=== PATIENT | female | born 1950 | race Caucasian/White ===

== ENCOUNTER → 2018-06-11 | Day surgery (SDC) | payer MEDICAID ==
[2018-06-11 12:28] VITALS: RESP 16; TEMP 97.7; BMI 33.4
--- NOTE | 2018-06-11 14:16 | USB ---
EXAMINATION TYPE: US biopsy breast VAD LT, MG diagnostic mammo LT wo CAD DATE OF EXAM: 06/11/2018 CLINICAL HISTORY: R92.8 Abn mammo and US. TECHNIQUE: Ultrasound guided core biopsy of left breast with clip placement and follow-up diagnostic two-view left breast mammogram. COMPARISON: Outside mammogram and ultrasound May 28, 2018 in original screening study March 16, 2018 FINDINGS: The procedure of ultrasound guided core biopsy was explained to the patient. Benefits, alternatives, and risks were discussed. An informed consent was then obtained. The patient was placed in supine positioning for imaging and for the procedure. Preprocedure ultrasound redemonstrates a vague 6 mm hypoechoic lesion deep in the left breast at 4:00 level don't see. The overlying skin was prepped and draped in usual sterile fashion. Lidocaine buffered with bicarbonate was used as anesthetic into the skin. Lidocaine with epinephrine is used as anesthetic into the deeper tissue up to area of concern in the left breast. Under ultrasound guidance, a 12-gauge vacuum assisted biopsy gun device was used to obtain 3 core samples. Following this, a biopsy clip was left in lesion. Lesion was less well visualized and/or defined after sampling. The patient tolerated the procedure well without any immediate complication. The patient was kept in the radiology department for short stay after the procedure and then discharged home in stable condition. Postprocedure mammogram shows clip satisfactory position relative to previous procedure imaging. Lesion is less well visualized after biopsy. IMPRESSION: Successful, uncomplicated ultrasound guided core biopsy of area of concern in the left breast, full pathology results to follow. Intermediate to high index of suspicion noted at time of procedure. Pathology Results: Malignant BREAST, LEFT, ULTRASOUND GUIDED CORE BIOPSY: Invasive well differentiated ductal carcinoma (Grade 1). See Surgical Pathology Cancer Case Summary. Recommendation Surgical consult of the left breast. SEMAJ
[2018-06-11 14:33] VITALS: BP 137/74; PULSE 75
== END ==
LOC: RADUSWWP 12:01
PROVIDERS: ATTEND Family Medicine
DX: C50.912 Malignant neoplasm of unspecified site of left female breast (principal); Z91.041 Radiographic dye allergy status
CPT/HCPCS: 88305; 77065; 19083; A4648; J2001

== ENCOUNTER → 2018-06-19 | Outpatient (CLI) | payer MEDICAID ==
[2018-06-19 14:10] VITALS: BP 148/92; PULSE 86; BMI 34.0
--- NOTE | 2018-06-19 15:25 | P.GSHP ---
History of Present Illness H&P Date: 06/19/18 The patient is a 67-year-old white female who on a routine screening mammogram was noted to have an area of concern in the left breast. This was done in February at [place]. The patient subsequently had additional views of the left breast performed in April and finally an ultrasound performed [place] [address] an ultrasound-guided core biopsy of the lesion of concern in the left breast. This was a invasive well-differentiated ductal carcinoma grade 1. The patient states that she did not feel any masses or lumps in her breasts. She has no nipple discharge or skin changes. She has no history of trauma or infection in the breast. Family history: 1. father: esophagus 2. sister: rib cancer 3. great grandmother: uterine cancer Hormonal History: menarche: 11 pregnancies: 4, 4 children, first at 16, breast fed: no menopause: 34-total hysterectomy took one ovary, later went back and removed the second ovary BCP: 6 years hormones: 8 years Past Surgical History: 1. back surgery 2. total hysterectomy for fibroids 3. nose 4. gallbaldder Past Medical History: 1. HTN 2.hiatal hernia 3. arthritis 4. fibromyalgia Social History: smoke: stopped 10 years ago, smoked 1PPD for 20 years alcohol: occasional wine drugs: none - Constitutional Constitutional: Denies chills, Denies fever - EENT Comment: vertigo at times Eyes: denies blurred vision, denies pain Ears: deny: decreased hearing, ear discharge, earache, tinnitus Ears, nose, mouth and throat: Denies headache, Denies sore throat - Breasts Breasts: bilateral: as per HPI - Cardiovascular Cardiovascular: Reports high blood pressure - Respiratory Comment: former smoker Respiratory: Denies cough, Denies 7 - Gastrointestinal Comment: spastic colon Gastrointestinal: Reports diarrhea - Genitourinary (Female) Genitourinary: Denies dysuria, Denies hematuria - Menstruation Menstruation: Reports post hysterectomy - Musculoskeletal Comment: arthritis - Integumentary Integumentary: Denies pruritus, Denies rash - Neurological Neurological: Denies numbness, Denies weakness - Psychiatric Psychiatric: Denies anxiety, Denies depression - Endocrine Endocrine: Denies fatigue, Denies weight change - Hematologic/Lymphatic Comment: baby aspirin - Allergic/Immunologic Allergic/Immunologic: Reports seasonal allergies Past Medical History Past Medical History: Hyperlipidemia, Hypertension, Osteoarthritis (OA) Additional Past Medical History / Comment(s): Sinus problems/seasonal allergies History of Any Multi-Drug Resistant Organisms: None Reported Past Surgical History: Back Surgery, Cholecystectomy, Hysterectomy Past Anesthesia/Blood Transfusion Reactions: No Reported Reaction Past Psychological History: Anxiety Smoking Status: Former smoker Past Alcohol Use History: None Reported Past Drug Use History: None Reported Medications and Allergies Home Medications Medication Instructions Recorded Confirmed Type Acetaminophen [Tylenol] 500 mg PO HS PRN 06/08/18 06/19/18 History Aspirin EC [Ecotrin Low Dose] 81 mg PO DAILY 06/08/18 06/19/18 History Atorvastatin [Lipitor] 10 mg PO DAILY 06/08/18 06/19/18 History Cholecalciferol [Vitamin D3] 1,000 unit PO DAILY 06/08/18 06/19/18 History Cyclobenzaprine [Flexeril] 10 mg PO BID PRN 06/08/18 06/19/18 History DULoxetine HCL [Cymbalta] 60 mg PO DAILY 06/08/18 06/19/18 History Loratadine [Claritin] 10 mg PO DAILY 06/08/18 06/19/18 History Omeprazole [PriLOSEC] 20 mg PO AC-BRKFST 06/08/18 06/19/18 History Quinapril HCl [Accupril] 10 mg PO DAILY 06/08/18 06/19/18 History Allergies Allergy/AdvReac Type Severity Reaction Status Date / Time Iodinated Contrast- Oral and Allergy Rash/Hives Verified 06/11/18 12:14 IV Dye Surgical - Exam Vital Signs Pulse BP 86 148/92 06/19/18 14:04 06/19/18 14:04 BMI 34 - General obese - Eyes normal ocular movement - ENT no hearing loss, no congestion - Neck no masses, trachea midline - Respiratory normal respiratory effort, clear to auscultation - Cardiovascular Rhythm: regular Heart Sounds: normal: S1, S2 - Abdomen Abdomen: soft, non tender, no guarding, no rigid, no rebound - Neurologic no disoriented, no combative - Musculoskeletal normal gait, normal posture - Psychiatric oriented to time, oriented to person, oriented to place, speech is normal, memory intact Breast examination: Right breast: Multi-positional exam no dominant masses or nodules of concern, fibrocystic changes Right axilla: No adenopathy of concern Left breast: Ecchymosis related to prior core biopsy, small what is most likely intraparenchymal hematoma multi-positional examination no dominant masses or nodules of concern, fibrocystic changes Left axilla: No adenopathy of concern Results Mammogram and ultrasound radiographs reviewed Assessment and Plan Assessment: Impression: 1. Ultrasound core biopsy left breast positive invasive well-differentiated ductal carcinoma, grade 1 2. History of hypertension 3. Arthritis Plan: 1. Needle localization and lumpectomy left breast 2. [place] node biopsy left axilla possible axillary node dissection 3. Medical management of medical conditions Have had a long discussion with the patient and her and daughter regarding treatment options including lumpectomy and radiation therapy versus mastectomy and sentinel node biopsy possible axillary node dissection. The patient and her understand and have chosen lumpectomy with radiation therapy. They understand the risks and benefits of the procedure including bleeding and infection reaction to the anesthetic and wished to proceed. They also understand that if the margins are positive there may have to have repeat excision. They understand the sentinel node biopsy with possible axillary node dissection. The patient will be scheduled for a left breast needle localization, lumpectomy , with sentinel node biopsy injection, sentinel node biopsy and possible axillary node dissection in the near future. CC. Dr. Goetz
== END ==
LOC: WWCWWP 13:56
PROVIDERS: ATTEND Surgery
DX: Z53.9 Procedure and treatment not carried out, unspecified reason (principal)

== ENCOUNTER 2018-07-14 06:25 | Day surgery (SDC) | payer MEDICAID ==
[2018-07-08 08:33] VITALS: BMI 34.2
[~2018-07-14 06:25] MED LIST: HEPARIN SODIUM,PORCINE 5,000 UNIT/ML 1 ML VIAL SQ ONE; HYDROmorphone 1 MG/ML 1 ML SYRINGE IVP PRN; LACTATED RINGERS 1,000 ML IV SCH; ONDANSETRON 4 MG/2 ML VIAL IVP ONE; fentaNYL (PF) 50 MCG/ML 2 ML AMP IV PRN
[2018-07-14] MEDS ORDERED: ALPRAZolam 0.25 MG TAB PO ONE (07:49)
[2018-07-14] MEDS ORDERED: LIDOCAINE 1% 20 ML VIAL (10MG/ML) FOR IV START INTRADERMA ONE (07:58)
[2018-07-14] MEDS ORDERED: LIDOCAINE 1% INJ 10MG/ML (20 ML MDV) SQ ONE ×3 (08:19→09:34)
[2018-07-14] MEDS ORDERED: SODIUM BICARB 4% 5 ML VIAL (0.48 MEQ/ML) MISCELLANE ONE (08:19)
[2018-07-14] MEDS ORDERED: SUCCINYLCHOLINE CHLORIDE 100 MG/5 ML SYR IV ONE (08:58)
[2018-07-14] MEDS ORDERED: fentaNYL (PF) 50 MCG/ML 2 ML AMP ONE (08:58)
[2018-07-14] MEDS ORDERED: PHENYLEPHRINE-0.9% NACL SYG 1 MG/10 ML SYRINGE ONE (08:58)
[2018-07-14] MEDS ORDERED: PROPOFOL 10 MG/ML 20 ML VIAL IV ONE (08:58)
[2018-07-14] MEDS ORDERED: MIDAZOLAM 2 MG/2 ML VIAL ONE (08:58)
[2018-07-14] MEDS ORDERED: LIDOCAINE 1% INJ 10MG/ML (20 ML MDV) ONE (08:58)
[2018-07-14] MEDS ORDERED: ePHEDrine SULFATE/0.9% NACL/PF 50 MG/5 ML SYRINGE IV ONE (08:58)
--- NOTE | 2018-07-14 09:06 | NM ---
EXAMINATION TYPE: NM sentinel node injection DATE OF EXAM: 07/14/2018 COMPARISON: 06/11/2018 HISTORY: Left breast cancer with request for sentinel node injection. TECHNIQUE AND FINDINGS: The procedure of sentinel lymph node injection was explained to the patient. The benefits, alternatives, and risks were discussed. An informed consent was then obtained. Prepr ocedural timeout was performed. Overlying skin is cleaned with sterile alcohol. Following this, 550 uCi Tc99m Tilmanocept was inject ed in the upper outer aspect of the left nipple intradermally. The patient tolerated the procedure well without any immediate complication. The patient was kept in the radiology department for short stay after the procedure and then taken to surgery for surgical p rocedure what is presumed intraoperative gamma probe will be used for sentinel lymph node detection. IMPRESSION: Left breast radiotracer injection for sentinel node localization as above.
[2018-07-14] MEDS ORDERED: SODIUM CHLORIDE 0.9% 50 ML with ceFAZolin 2,000 MG IV ONE ×2 (09:11)
[2018-07-14] MEDS ORDERED: HEPARIN SODIUM,PORCINE 5,000 UNIT/ML 1 ML VIAL SQ ONE (09:17)
--- NOTE | 2018-07-14 09:18 | P.NAPBC ---
NAPBC Queries - NAPBC Queries Was patient's case review presented at [facility] tumor board? If no, comment.: Yes Was patient's pathology reviewed at [facility]? If no, comment.: Yes Was breast conservation surgery offered? If no, comment.: Yes Was sentinel node biopsy offered? If no, comment.: Yes Was diagnosis confirmed by percutaneous core biopsy? If no, comment.: Yes If mastectomy patient, was a preop referral to a reconstructive surgeon offered? : Yes
[2018-07-14] MEDS ORDERED: LACTATED RINGERS 1,000 ML IV ONE (09:49)
--- NOTE | 2018-07-14 10:54 | P.OP ---
Date of Procedure: 07/14/18 Preoperative Diagnosis: Left breast cancer, invasive ductal carcinoma Postoperative Diagnosis: same Procedure(s) Performed: Left breast sentinel node biopsy, left breast lumpectomy, tissue rearrangement approximately 4 cm x1 cm, placement of Biozorb Implants: Biozorb Anesthesia: GETA Surgeon: Nola Sanchez Estimated Blood Loss (ml): 10 IV fluids (ml): 900 Pathology: other ([place] node, breast tissue from lumpectomy) Condition: stable Disposition: PACU Indications for Procedure: Left breast cancer Operative Findings: Dense breast tissue Description of Procedure: The patient was taken to the operating room and following induction of general anesthesia the left breast and axilla were prepped and draped in a sterile fashion. The sentinel node was approached initially. The neoprobe was utilized to identify the area of increased radioactivity in the axilla. An incision was made over this area. Dissection was carried down through a palpable abnormality as well as a radioactive lymph node. This was carefully excised using the Harmonic scalpel. The 10 second count on the node was 2749. The background 10 second count in the axilla was 20. After assured that hemostasis was attained the axilla was again examined. No palpable adenopathy of concern was identified. The node was not clinically suspicious and a frozen section was not obtained. The deep tissues were closed using a 3-0 Vicryl suture. The skin was closed using a 4-0 Monocryl. Following this the area of the breast was approached An incision was made in the breast and carried down to the hook of the localizing needle. The dissection was carried down to the pectoralis major muscle. Wide excision was performed around the area of the localizing needle. The specimen was then radiographed with confirmation that the area of concern had been removed. The tissues were mobiliziation of 4 x 2 cm was preformed to facilitate closure of the defect. A sizer was utilized to determine the size of the Biozorb to be placed in the defect. A 3 x 4 cm Biozorb was chosen. This was placed and secured using 3-0 Vicryl suture. The deep tissues were then closed using 3-0 Vicryl suture. The skin was closed using a 4-0 Monocryl. Prior to this the wound had been irrigated and we confirmed that hemostasis was attained. All instrument and sponge counts were correct at the end of the case. The patient tolerated the procedure in stable condition.
--- NOTE | 2018-07-14 10:57 | P.DS ---
Providers Attending physician: Nola Sanchez Primary care physician: Jan Goetz Plan - Discharge Summary New Discharge Prescriptions: No Action Quinapril HCl [Accupril] 10 mg PO HS Cyclobenzaprine [Flexeril] 10 mg PO BID PRN PRN Reason: Pain Atorvastatin [Lipitor] 10 mg PO HS Omeprazole [PriLOSEC] 20 mg PO HS Loratadine [Claritin] 10 mg PO QAM DULoxetine HCL [Cymbalta] 60 mg PO QAM Aspirin EC [Ecotrin Low Dose] 81 mg PO DAILY Cholecalciferol [Vitamin D3] 1,000 unit PO QAM amLODIPine [Norvasc] 10 mg PO HS Ibuprofen 1,000 mg PO HS Discharge Medication List Aspirin EC [Ecotrin Low Dose] 81 mg PO DAILY 06/08/18 [History] Atorvastatin [Lipitor] 10 mg PO HS 06/08/18 [History] Cholecalciferol [Vitamin D3] 1,000 unit PO QAM 06/08/18 [History] Cyclobenzaprine [Flexeril] 10 mg PO BID PRN 06/08/18 [History] DULoxetine HCL [Cymbalta] 60 mg PO QAM 06/08/18 [History] Loratadine [Claritin] 10 mg PO QAM 06/08/18 [History] Omeprazole [PriLOSEC] 20 mg PO HS 06/08/18 [History] Quinapril HCl [Accupril] 10 mg PO HS 06/08/18 [History] Ibuprofen 1,000 mg PO HS 07/08/18 [History] amLODIPine [Norvasc] 10 mg PO HS 07/08/18 [History] Follow up Appointment(s)/Referral(s): Nola Sanchez MD [STAFF PHYSICIAN] - 1 Week Activity/Diet/Wound Care/Special Instructions: Do not drive today Wear surgical bra at all times unless showering Patient may shower after 48 hours Discharge Disposition: HOME SELF-CARE
[2018-07-14 11:02] VITALS: TEMP 97.6
[2018-07-14 11:54] LABS: Glucose,Whole Blood 115 mg/dL (75-99)
[2018-07-14] MEDS ORDERED: HYDROcodone/APAP 5-325MG 1 EACH TAB PO ONE (11:59)
[2018-07-14 12:25] VITALS: RESP 18
[2018-07-14 12:48] VITALS: BP 130/78; PULSE 80
== END 2018-07-14 13:28 | disposition home or self-care (01) ==
LOC: OR 06:25
PROVIDERS: ATTEND Surgery
DX: C50.912 Malignant neoplasm of unspecified site of left female breast (principal); Z90.710 Acquired absence of both cervix and uterus; Z90.722 Acquired absence of ovaries, bilateral; I10 Essential (primary) hypertension; M19.90 Unspecified osteoarthritis, unspecified site; M79.7 Fibromyalgia; K44.9 Diaphragmatic hernia without obstruction or gangrene; Z87.891 Personal history of nicotine dependence; R19.7 Diarrhea, unspecified; E78.5 Hyperlipidemia, unspecified; F41.9 Anxiety disorder, unspecified; Z79.82 Long term (current) use of aspirin; Z79.899 Other long term (current) drug therapy; Z91.041 Radiographic dye allergy status; J43.9 Emphysema, unspecified; K21.9 Gastro-esophageal reflux disease without esophagitis; F32.9 Major depressive disorder, single episode, unspecified; Z88.7 Allergy status to serum and vaccine; Z88.8 Allergy status to other drugs, medicaments and biological substances; J30.1 Allergic rhinitis due to pollen; L82.1 Other seborrheic keratosis; Z17.0 Estrogen receptor positive status [ER+]
CPT/HCPCS: 38525; 19125; 88342; 88307; 88341; 38792; A4648; A9520; J2250; J1644; J2405; J2001; J3010; J1170; J0690; J2370; J0330; J2704

== ENCOUNTER → 2018-07-24 | Outpatient (CLI) | payer MEDICAID ==
[2018-07-24 11:33] VITALS: BP 128/83; PULSE 100; RESP 18; TEMP 96; BMI 34.2
--- NOTE | 2018-07-24 12:08 | P.PN ---
Subjective Progress Note Date: 07/24/18 Principal diagnosis: Left breast cancer The patient is a 67-year-old white female who presents status post left breast lumpectomy and sentinel node biopsy. Pathology revealed negative margins and sentinel nodes all negative for cancer. The patient is doing well at this time. Her only concern is that the tape from the dressing is still adherent to her skin. Objective - Vital Signs Vital signs: Vital Signs Temp 96 F L 07/24/18 11:23 Pulse 100 07/24/18 11:23 Resp 18 07/24/18 11:23 BP 128/83 07/24/18 11:23 Pulse Ox 96 07/24/18 11:23 Intake & Output 07/23/18 07/24/18 07/24/18 18:59 06:59 18:59 Weight 102.058 kg - Constitutional General appearance: Present: obese - EENT Eyes: Present: EOMI ENT: Present: hearing grossly normal - Neck Neck: Present: normal ROM - Respiratory Respiratory: bilateral: CTA - Cardiovascular Rhythm: regular Heart sounds: normal: S1, S2 - Gastrointestinal General gastrointestinal: Present: soft - Musculoskeletal Musculoskeletal: Present: gait normal, generalized weakness - Psychiatric Psychiatric: Present: A&O x's 3, appropriate affect, intact judgment & insight Assessment and Plan Assessment: Impression: 1. Patient status post left breast lumpectomy and sentinel node biopsy. [id number] Pathology is invasive ductal carcinoma margins negative ER,CT+, Her2 -, Grade1 Plan: 1. medical oncology consult 2. radiation oncology consult 3. follow up in 3 months cc: Dr. Gonzalez (Shy Marcia Physician [employer] [facility], [facility])
== END | disposition home or self-care (01) ==
LOC: WWCWWP 11:10
PROVIDERS: ATTEND Surgery
DX: Z53.9 Procedure and treatment not carried out, unspecified reason (principal)
CPT/HCPCS: 76098

== ENCOUNTER → 2018-10-09 | Outpatient (CLI) | payer BC ==
[2018-10-09 11:32] VITALS: BP 127/80; PULSE 85; RESP 18; TEMP 97.6; BMI 35.7
--- NOTE | 2018-10-09 11:44 | P.PN ---
Subjective Progress Note Date: 10/09/18 Principal diagnosis: left breast STAGE [id number], ER+ HI+, Her2/ernestine-,Grade 1 Yvette is a 67-year-old white female status post left breast lumpectomy and sentinel node biopsy on 07/14/2018. Postprocedure she has received radiation therapy. Additionally she had an oncotype test which was low and did not need chemotherapy, she is going to see him regarding an aromatase inhibitor in the near future. The patient has no complications related to her surgery. She has no complaints related to the surgery. Objective - Vital Signs Vital signs: Vital Signs Temp 97.6 F 10/09/18 11:29 Pulse 85 10/09/18 11:29 Resp 18 10/09/18 11:29 BP 127/80 10/09/18 11:29 Pulse Ox Intake & Output 10/08/18 10/09/18 10/09/18 18:59 06:59 18:59 Weight 109.769 kg - Exam BMI 35.7 - Constitutional General appearance: Present: cooperative, obese - EENT ENT: Present: hearing grossly normal - Respiratory Respiratory: bilateral: CTA - Cardiovascular Rhythm: regular Heart sounds: normal: S1, S2 - Gastrointestinal General gastrointestinal: Present: soft - Integumentary Integumentary Comment(s): Erythema over the left breast related to radiation changes Integumentary: Present: normal - Musculoskeletal Musculoskeletal: Present: gait normal - Psychiatric Psychiatric: Present: A&O x's 3, appropriate affect, intact judgment & insight - Additional findings Additional findings: Breast examination: Right breast: Multiple positional exam no dominant masses or nodules of concern Right axilla: No adenopathy of concern Left breast: Skin changes related to radiation, multi-positional exam no dominant masses or nodules of concern, no evidence of any recurrent disease, Left axilla: Some postoperative changes identified no adenopathy of concern Assessment and Plan Assessment: Impression: 1. Patient status post left breast lumpectomy, radiation therapy, with no evidence of recurrent cancer 2. Patient is following with medical oncology regarding aromatase inhibitor 3. HTN Plan: 1. Follow up here in 3-4 months time 2. Follow with medical oncology regarding possible aromatase inhibitor 3. Medical management of medical conditions CC: Shy Camarena, ([facility]
== END | disposition home or self-care (01) ==
LOC: WWCWWP 10:23
PROVIDERS: ATTEND Surgery
DX: Z53.9 Procedure and treatment not carried out, unspecified reason (principal)

== ENCOUNTER → 2019-01-26 | Outpatient (CLI) | payer BC ==
--- NOTE | 2019-01-26 11:34 | MM ---
Reason for exam: follow-up at short interval from prior study. Last mammogram was performed 8 months ago. History: Patient is postmenopausal and has history of breast cancer at age 67. Malignant MG pre op needle loc LT of the left breast, July 14, 2018. Malignant US biopsy breast VAD LT of the left breast, June 11, 2018. Lumpectomy of the left breast. Radiation therapy of the left breast. Took estrogen for 5 years. Taking antineoplastic for 3 months. Physical Findings: Nurse did not find any significant physical abnormalities on exam. MG 3D Diag Mammo W/Cad LT CC and MLO view(s) were taken of the left breast. Prior study comparison: June 11, 2018, left breast MG diagnostic mammo LT wo CAD. There are scattered fibroglandular densities. No suspicious abnormality. Post therapy change left upper outer quadrant. These results were verbally communicated with the patient and result sheet given to the patient on 01/26/19. ASSESSMENT: Benign, BI-RAD 2 RECOMMENDATION: Routine screening mammogram of both breasts in 4 months. Back on schedule for April 2019.
== END ==
LOC: RADMAMWWP 10:29
PROVIDERS: ATTEND Surgery
DX: Z08 Encounter for follow-up examination after completed treatment for malignant neoplasm (principal); Z85.3 Personal history of malignant neoplasm of breast
CPT/HCPCS: 77061; 77065

== ENCOUNTER → 2019-02-04 | Outpatient (CLI) | payer BC ==
[2019-02-04 15:24] VITALS: BP 132/60; PULSE 93; RESP 20; TEMP 97.3; BMI 34.1
--- NOTE | 2019-02-04 15:26 | P.PN ---
Subjective Progress Note Date: 02/04/19 Principal diagnosis: Status post treatment for stage IA left breast cancer Yvette is a 67-year-old white female status post left breast lumpectomy and sentinel node biopsy on [id number]. Post procedure she received radiation therapy. She had an Oncotype test done which was low and did not need chemotherapy. [place] [address]. This was felt to be BIRAD 2 and routine screening mammogram of both breasts in 4 months was recommended. The patient was started on Arimidex and unfortunately is experiencing night sweats and hot flashes. The patient is not complaining of any nodules or masses in her breasts. She is not complaining of any pain in her breast. Family history: sister: Lung cancer Father: Esophageal cancer Great-grandmother: Uterine cancer Medical history: 1. Arthritis 2. Hypertension 3. Fibromyalgia 4. Hiatal hernia Surgical history: 1. Left breast lumpectomy and sentinel node biopsy 2. Hysterectomy 2. Back surgery 4. Fractured nose 5. Cholecystectomy Social history: Smoke: Stopped 10 years ago smokes 1 pack per day for 20 years Alcohol: Occasional wine Drugs: Negative Review of systems: HEENT: Vertigo at times, hot flashes Lungs: Former smoker Cardiovascular: Hypertension GI: Spastic colon : Negative Musculoskeletal: Arthritis Integument: Negative Neurologic: Negative Psychiatric: Negative Endocrine: Negative ALLERGIES: Seasonal ALLERGIES Objective - Exam BMI 34.1 - Constitutional General appearance: Present: obese - EENT Eyes: Present: EOMI ENT: Present: hearing grossly normal - Neck Neck: Present: normal ROM - Respiratory Respiratory: bilateral: CTA - Cardiovascular Rhythm: regular Heart sounds: normal: S1, S2 - Gastrointestinal Gastrointestinal Comment(s): no guarding or rebound General gastrointestinal: Present: soft - Integumentary Integumentary: Present: normal turgor - Musculoskeletal Musculoskeletal: Present: gait normal - Psychiatric Psychiatric: Present: A&O x's 3, appropriate affect - Allied health notes Allied Health Notes Comment(s): Breast Exam: Right breast larger than left breast status post left breast lumpectomy and radiation therapy right breast: Multi-positional exam no dominant masses or nodules of concern Right axilla: No adenopathy of concern Left breast: Well-healed scar from prior surgery multiple positional exam no dominant masses or nodules of concern, no evidence of any recurrent cancer Left axilla: No adenopathy of concern Assessment and Plan Assessment: Impression: 1. No evidence of recurrent breast cancer 2. Hyperlipidemia 3. Hypertension 4. Osteoarthritis 5. Family history of cancer 6. Fibrocystic breast changes Plan: 1. Repeat bilateral mammogram in 4 months 2. Repeat physician examined for months 3. Continue to follow with medical oncology regarding her Arimidex and hot flashes 4. Medical management of medical conditions CC: DR. Roberts, Shy Boggs
== END | disposition home or self-care (01) ==
LOC: WWCWWP 14:03
PROVIDERS: ATTEND Surgery
DX: Z53.9 Procedure and treatment not carried out, unspecified reason (principal)

== ENCOUNTER → 2019-05-28 | Outpatient (CLI) | payer BC ==
--- NOTE | 2019-06-01 09:13 | MM ---
Reason for exam: screening (asymptomatic). Last mammogram was performed 4 months ago. History: Patient is postmenopausal and has history of breast cancer at age 67. Malignant MG pre op needle loc LT of the left breast, July 14, 2018. Malignant US biopsy breast VAD LT of the left breast, June 11, 2018. Lumpectomy of the left breast. Radiation therapy of the left breast. Took estrogen for 5 years. Taking antineoplastic for 3 months. Physical Findings: A clinical breast exam by your physician is recommended on an annual basis and results should be correlated with mammographic findings. MG 3D Screening Mammo W/Cad Bilateral CC and MLO view(s) were taken. Prior study comparison: January 26, 2019, left breast MG 3d diag mammo w/cad LT. June 11, 2018, left breast MG diagnostic mammo LT wo CAD. There are scattered fibroglandular densities. Post therapy change on the left. ASSESSMENT: Benign, BI-RAD 2 RECOMMENDATION: Follow-up diagnostic mammogram of both breasts in 1 year.
== END | disposition home or self-care (01) ==
LOC: RADMAMWWP 10:56
PROVIDERS: ATTEND Surgery
DX: Z12.31 Encounter for screening mammogram for malignant neoplasm of breast (principal)
CPT/HCPCS: 77063; 77067

== ENCOUNTER → 2019-06-03 | Outpatient (CLI) | payer BC ==
[2019-06-03 11:41] VITALS: BP 144/84; PULSE 87; RESP 18; TEMP 97.6; BMI 31.4
--- NOTE | 2019-06-03 12:06 | P.PN ---
Subjective Progress Note Date: 06/03/19 Gen. he is a 67-year-old white female status post left breast lumpectomy and sentinel node biopsy on [id number]. Post procedure she received radiation therapy. She had an Oncotype test done which was low and she did not receive chemotherapy. She had a bilateral mammogram performed on 04/3019. This was b enign BIRADS 2 and follow-up mammogram of both breasts in 1 year was recommended. She was started on Arimidx she was experiencing some night sweats and was put on another medication with the remainder ducts which did not help and therefore was taking only a limited exit this time. She does continue to experience some hot flashes and night sweats but is tolerating this. Family history: Sr.: Lung cancer Father: Esophageal cancer Great-grandmother: Uterine cancer Medical history: Arthritis Hypertension Fibromyalgia Hiatal hernia. Surgical history: Left breast lumpectomy and sentinel node biopsy Hysterectomy Past surgery Fractured nose Cholecystectomy Social history: Smoke: Stopped 11 years ago, smoked 1 pack per day for 20 years Alcohol: Occasional wine Drugs: Negative Review of systems: HEENT: Vertigo at times hot flashes Lungs: Former smoker Cardiovascular: Hypertension GI: Spastic colon : Negative Musculoskeletal: Arthritis Integument: Negative Neurologic: Negative Psychiatric: Negative Endocrine: Negative ALLERGIES: Seasonal ALLERGIES Objective - Vital Signs Vital signs: Vital Signs Temp 97.6 F 06/03/19 11:37 Pulse 87 06/03/19 11:37 Resp 18 06/03/19 11:37 BP 144/84 06/03/19 11:37 Pulse Ox 96 06/03/19 11:37 Intake & Output 06/02/19 06/03/19 06/03/19 18:59 06:59 18:59 Weight 96.615 kg - Exam BMI 31.5 - Constitutional General appearance: Present: obese - EENT Eyes: Present: EOMI ENT: Present: hearing grossly normal - Neck Neck: Present: normal ROM - Respiratory Respiratory: bilateral: CTA - Cardiovascular Rhythm: regular Heart sounds: normal: S1, S2 - Gastrointestinal General gastrointestinal: Present: soft - Integumentary Integumentary: Present: normal turgor - Musculoskeletal Musculoskeletal: Present: gait normal - Psychiatric Psychiatric: Present: A&O x's 3, appropriate affect, intact judgment & insight - Additional findings Additional findings: Breast examination: Right breast: Multi-positional exam no dominant masses or nodules of concern Right axilla: No adenopathy of concern Left breast: Slightly smaller than right breast secondary to lumpectomy and radiation therapy, multiple positional exam fibrocystic changes and postoperative changes no dominant masses or nodules of concern Left axilla: No adenopathy of concern No evidence of recurrent cancer Assessment and Plan Assessment: Impression: 1. Personal history of left breast stage I cancer status post lumpectomy and sentinel node biopsy 2. Patient presently on Arimidex 3. Arthritis 4. Hypertension 5. Fibromyalgia 6. Hiatal hernia 7. Family history of cancer Plan: 1. Continue Revlimid X 2. Medical management of medical conditions 3. Physician exam in 6 months CC: Dr. Bishnu Ca
== END ==
LOC: WWCWWP 11:31
PROVIDERS: ATTEND Surgery
DX: Z53.9 Procedure and treatment not carried out, unspecified reason (principal)

== ENCOUNTER → 2020-02-01 | Outpatient (CLI) | payer BC ==
--- NOTE | 2020-02-01 15:00 | P.PN ---
Progress Note - Text Progress Note Date: 02/01/20 The patient verbally agreed to telephone conference regarding follow-up for her stage I a left breast cancer. This is a teleconferrence for Yvette Brown. Yvette is a 69-year-old white female status post left breast lumpectomy and sentinel node biopsy on [id number]. For a [id number] ER+WA +HER-2/ernestine- G1 left breast cancer. She received whole breast radiation for a total dose of 4256 cGy in 16 fractions, this was completed in August 2019. She had an Oncotype test done which was low and did not receive chemotherapy. Bilateral mammogram was performed in April 2019. This was benign BIRADS 2. Follow-up mammogram of both breasts in 1 year was recommended. She was started on anastrozole in September 2018. At that time baseline BMD was normal. She did have hot flashes and was given a trial of Effexor but this was not effective. She states she gets occasional pains in the left breast they are under the arm. There is nothing that precipitates the pains. They occur 1 or two times a week. No complaints of infection or redness of breast. She has no complaints of masses or nodules in breast. She is still having night sweats. She is going to talk to medical oncology on . Family history: sister: Lung cancer Father: Esophageal cancer Great-grandmother: Uterine cancer Medical history: Arthritis Hypertension Fibromyalgia Hiatal hernia Surgical history: Left breast lumpectomy and sentinel lobe biopsy Hysterectomy Fractured nose Cholecystectomy Social history: Smoke: Stopped 12 years ago smokes 1 pack per day for 20 years Alcohol: Occasional wine Drugs: Negative Review of systems: HEENT: sinus drainage lungs: none heart: none GI: none :none, has had a hysterectomy for cysts no cancer Musculoskeletal: arthritis, knees, hips, elbows Neurologic:none skin: none psych: none hematologic: baby aspirin Impression: 1. Stage IA left breast cancer 2. Patient symptomatic on anastrozole/night sweats 3. Patient does not note any evidence of recurrent cancer, and no history which is suspicious for metastatic disease Plan: 1. Discuss with Dr. Roberts night sweats/anastrozole 2. Bilateral mammogram in April with physician exam at that time 3. Patient should call immediately if she has any questions or concerns Encounter: 15 minutes Cc: Dr. Jan CastilloA.
== END | disposition home or self-care (01) ==
LOC: WWCWWP 14:38
PROVIDERS: ATTEND Surgery
DX: Z53.9 Procedure and treatment not carried out, unspecified reason (principal)

== ENCOUNTER → 2020-06-30 | Outpatient (CLI) | payer BC ==
--- NOTE | 2020-07-03 09:45 | MM ---
Reason for exam: screening (asymptomatic). Last mammogram was performed 1 year and 1 month ago. History: Patient is postmenopausal and has history of breast cancer at age 67. Malignant MG pre op needle loc LT of the left breast, July 14, 2018. Malignant US biopsy breast VAD LT of the left breast, June 11, 2018. Lumpectomy of the left breast. Radiation therapy of the left breast. Took estrogen for 5 years. Taking antineoplastic for 3 months. Physical Findings: A clinical breast exam by your physician is recommended on an annual basis and results should be correlated with mammographic findings. MG 3D Screening Mammo W/Cad Bilateral CC and MLO view(s) were taken. Prior study comparison: May 28, 2019, bilateral MG 3d screening mammo w/cad. January 26, 2019, left breast MG 3d diag mammo w/cad LT. There are scattered fibroglandular densities. There is no discrete abnormality. Stable post operative changes left breast. No significant changes when compared with prior studies. ASSESSMENT: Benign, BI-RAD 2 RECOMMENDATION: Routine screening mammogram of both breasts in 1 year.
== END | disposition home or self-care (01) ==
LOC: RADMAMWWP 16:06
PROVIDERS: ATTEND Surgery
DX: Z12.31 Encounter for screening mammogram for malignant neoplasm of breast (principal)
CPT/HCPCS: 77063; 77067

== ENCOUNTER → 2020-07-27 | Outpatient (CLI) | payer BC ==
[2020-07-27 11:32] VITALS: BP 99/82; PULSE 72; RESP 16; TEMP 97.7
--- NOTE | 2020-07-27 11:50 | P.PN ---
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 Post procedure she received radiation therapy. She had an Oncotype test done which was low and she did not receive chemotherapy. She had a bilateral mammogram performed on 06-30-20 This was benign BIRADS 2 and follow-up mammogram of both breasts in 1 year was recommended. She was started on Arimidx she stopped this secondary to hot flashes, she than started aromasin which she is tolerating without difficulty. She states that her nails have become more than since she is on the medication. Family history: sister.: Lung cancer Father: Esophageal cancer Great-grandmother: Uterine cancer sister: lymphoma Medical history: Arthritis Hypertension Fibromyalgia Hiatal hernia. Surgical history: Left breast lumpectomy and sentinel node biopsy Hysterectomy Past surgery Fractured nose Cholecystectomy Social history: Smoke: Stopped 11 years ago, smoked 1 pack per day for 20 years Alcohol: Occasional wine Drugs: Negative Review of systems: HEENT: Vertigo at times hot flashes Lungs: Former smoker Cardiovascular: Hypertension GI: Spastic colon : Negative Musculoskeletal: Arthritis Integument: Negative Neurologic: Negative Psychiatric: Negative Endocrine: Negative ALLERGIES: Seasonal ALLERGIES Social History: Nicotine: Negative former smoker stopped 10 years ago Alcohol: Occasionally Drugs: Negative Objective - Vital Signs Vital signs: Vital Signs Temp 97.7 F 07/27/20 11:26 Pulse 72 07/27/20 11:26 Resp 16 07/27/20 11:26 BP 99/82 07/27/20 11:26 Pulse Ox Intake & Output 07/26/20 07/27/20 07/27/20 18:59 06:59 18:59 Weight 99.79 kg - Exam BMI 32.5 - Constitutional General appearance: Present: obese - EENT Eyes: Present: EOMI ENT: Present: hearing grossly normal - Neck Neck: Present: normal ROM - Respiratory Respiratory: bilateral: CTA - Cardiovascular Rhythm: regular Heart sounds: normal: S1, S2 - Gastrointestinal General gastrointestinal: Present: normal bowel sounds, soft - Integumentary Integumentary: Present: normal turgor - Musculoskeletal Musculoskeletal: Present: gait normal - Psychiatric Psychiatric: Present: A&O x's 3, appropriate affect, intact judgment & insight - Additional findings Additional findings: breast exam: BRA: 40D, left side smaller than the right inspection: Right breast larger than left breast, bilateral grade 3 ptosis Palpation: Right breast: No dominant masses or nodules of concern, fibrocystic changes Right axilla: No adenopathy of concern Left breast: Fibrocystic changes, no dominant masses or nodules of concern, radiation changes until healed scar Left axilla: No adenopathy of concern Assessment and Plan Assessment: Impression: Arthritis Hypertension Fibromyalgia Hiatal hernia. Stage I a left breast cancer no evidence of recurrence Recent bilateral mammogram on by related to Plan: 1. Continue Aromasin 2. Bilateral mammogram in 1 year 3. Follow-up here in 6 months Cc: Nicol Boggs encounter 25 minutes > 50% of time in planning and counselling
== END | disposition home or self-care (01) ==
LOC: WWCWWP 10:09
PROVIDERS: ATTEND Surgery
DX: Z53.9 Procedure and treatment not carried out, unspecified reason (principal)

== ENCOUNTER → 2021-01-25 | Outpatient (CLI) | payer OTHER ==
[2021-01-25 09:59] VITALS: BP 144/80; PULSE 77; RESP 18; TEMP 98
--- NOTE | 2021-01-25 10:42 | P.PN ---
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 Post procedure she received radiation therapy. She had an Oncotype test done which was low and she did not receive chemotherapy. She had a bilateral mammogram performed on 06-30-20 This was benign BIRADS 2 and follow-up mammogram of both breasts in 1 year was recommended. She was started on Arimidx she stopped this secondary to hot flas hes, she than started aromasin which she is tolerating without difficulty. She states that her nails are better. She is having decreased night sweats. She is not complaining of any new lumps masses or nodules in either breast. She is not complaining of any skin changes in her breast. She is not complaining of any nipple discharge of concern. Marked asymmetry of the breast related to left breast lumpectomy, patient complains of difficulty finding clothes to fit. She does complain of bilateral shoulder notching related to the large size of her right breast from her bras. I cannot find appropriate bras to fit and has difficulty finding close to fit well. As his anxiety for her. Family history: sister.: Lung cancer Father: Esophageal cancer Great-grandmother: Uterine cancer sister: lymphoma Medical history: Arthritis Hypertension Fibromyalgia Hiatal hernia. varicose legs right leg, to have surgery in the future not sure when Surgical history: Left breast lumpectomy and sentinel node biopsy Hysterectomy Past surgery Fractured nose Cholecystectomy Social history: Smoke: Stopped 11 years ago, smoked 1 pack per day for 20 years Alcohol: Occasional wine Drugs: Negative Review of systems: HEENT: Vertigo at times hot flashes Lungs: Former smoker Cardiovascular: Hypertension GI: Spastic colon : Negative Musculoskeletal: Arthritis Integument: Negative Neurologic: Negative Psychiatric: Negative Endocrine: Negative ALLERGIES: Seasonal ALLERGIES Social History: Nicotine: Negative former smoker stopped 10 years ago Alcohol: Occasionally Drugs: Negative Objective - Vital Signs Vital signs: Vital Signs Temp 98.0 F 01/25/21 09:57 Pulse 77 01/25/21 09:57 Resp 18 04/29/21 09:57 BP 144/80 01/25/21 09:57 Pulse Ox 99 01/25/21 09:57 Intake & Output 01/24/21 01/25/21 01/25/21 18:59 06:59 18:59 Weight 99.79 kg - Exam BMI 32.5 - Constitutional General appearance: Present: cooperative - EENT Eyes: Present: EOMI ENT: Present: hearing grossly normal - Neck Neck: Present: normal ROM - Respiratory Respiratory: bilateral: CTA - Cardiovascular Rhythm: regular Heart sounds: normal: S1, S2 - Gastrointestinal General gastrointestinal: Present: soft - Integumentary Integumentary: Present: normal turgor - Musculoskeletal Musculoskeletal: Present: gait normal - Psychiatric Psychiatric: Present: A&O x's 3, appropriate affect, intact judgment & insight - Additional findings Additional findings: Breast exam: BRA: 40DD right , left C left side smaller than right inspection: Marked asymmetry between the breasts, right larger than the left leg was approximately a DD and left is approximately a cc Palpation: Right breast: Multi-positional exam no dominant masses or nodules of concern Right axilla: No adenopathy of concern Left breast: Multi-positional exam no dominant masses or nodules of concern Left axilla: No adenopathy of concern Assessment and Plan Assessment: Impression: Arthritis Hypertension Fibromyalgia Hiatal hernia. varicose legs right leg, to have surgery in the future not sure when Status post left breast lumpectomy and radiation therapy/no evidence of any recurrent cancer Marked asymmetry of the breast Plan: 1. Repeat examination for surveillance in 6 months with a bilateral mammogram 2. Patient wishes to have mammoplasty right breast secondary to the marked asymmetry Risk and benefits of procedure discussed with the patient. Risks include but are not limited to bleeding, infection, reaction to the anesthetic. She understands the breast will not be exactly the same in size but will be more similar to what they are now. Additionally she may have some decreased sensation to the nipple areolar complex. She understands and wishes to proceed. She was given the option to be seen and treated by a plastic surgeon but declined.
== END ==
LOC: WWCWWP 09:42
PROVIDERS: ATTEND Surgery
DX: N64.89 Other specified disorders of breast (principal); I10 Essential (primary) hypertension; M79.7 Fibromyalgia; Z85.3 Personal history of malignant neoplasm of breast; M19.90 Unspecified osteoarthritis, unspecified site; K44.9 Diaphragmatic hernia without obstruction or gangrene; I83.93 Asymptomatic varicose veins of bilateral lower extremities; Z87.891 Personal history of nicotine dependence; Z98.890 Other specified postprocedural states

== ENCOUNTER → 2021-03-29 | Outpatient (CLI) | payer OTHER ==
[2021-03-29 14:53] VITALS: BP 130/83; PULSE 94; RESP 20; TEMP 98.2
--- NOTE | 2021-03-29 15:20 | P.PN ---
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 Post procedure she received radiation therapy. She had an Oncotype test done which was low and she did not receive chemotherapy. She had a bilateral mammogram performed on 06-30-20 This was benign BIRADS 2 and follow-up mammogram of both breasts in 1 year was recommended. She was started on Arimidx she stopped this secondary to hot flashes, she than started aromasin which she is tolerating without difficulty. She states that her nails are better. She is having decreased night sweats. She is not complaining of any new lumps masses or nodules in either breast. She is not complaining of any skin changes in her breast. She is not complaining of any nipple discharge of concern. Marked asymmetry of the breast related to left breast lumpectomy, patient complains of difficulty finding clothes to fit. She does complain of bilateral shoulder notching related to the large size of her right breast from her bras. I cannot find appropriate bras to fit and has difficulty finding close to fit well. As his anxiety for her. Family history: sister.: Lung cancer Father: Esophageal cancer Great-grandmother: Uterine cancer sister: lymphoma Medical history: Arthritis Hypertension Fibromyalgia Hiatal hernia. varicose legs right leg, to have surgery in the future not sure when Surgical history: Left breast lumpectomy and sentinel node biopsy Hysterectomy Past surgery Fractured nose Cholecystectomy Social history: Smoke: Stopped 11 years ago, smoked 1 pack per day for 20 years Alcohol: Occasional wine Drugs: Negative Review of systems: HEENT: Vertigo at times hot flashes Lungs: Former smoker Cardiovascular: Hypertension GI: Spastic colon : Negative Musculoskeletal: Arthritis Integument: Negative Neurologic: Negative Psychiatric: Negative Endocrine: Negative ALLERGIES: Seasonal ALLERGIES Social History: Nicotine: Negative former smoker stopped 10 years ago Alcohol: Occasionally Drugs: Negative Objective - Vital Signs Vital signs: Vital Signs Temp 98.2 F 03/29/21 14:50 Pulse 94 07/01/21 14:50 Resp 20 03/29/21 14:50 BP 130/83 03/29/21 14:50 Pulse Ox 96 03/29/21 14:50 Intake & Output 03/28/21 03/29/21 03/29/21 18:59 06:59 18:59 Weight 102.965 kg - Exam BMI 33.5 - Constitutional General appearance: Present: average body habitus, cooperative - EENT Eyes: Present: EOMI ENT: Present: hearing grossly normal - Neck Neck: Present: normal ROM - Respiratory Respiratory: bilateral: CTA - Cardiovascular Rhythm: regular Heart sounds: normal: S1, S2 - Gastrointestinal General gastrointestinal: Present: soft - Integumentary Integumentary: Present: normal turgor - Musculoskeletal Musculoskeletal: Present: gait normal - Psychiatric Psychiatric: Present: A&O x's 3, appropriate affect, intact judgment & insight - Additional findings Additional findings: Breast examination: Right breast 40DD, left breast 40 mL Inspection: Right breast markedly larger than left breast Palpation: Right breast: Multi-positional exam fibrocystic changes no dominant masses or nodules of concern Right axilla: No adenopathy of concern Left breast: Multi-positional exam postop changes, no dominant masses or nodules of concern Left axilla: No adenopathy of concern Assessment and Plan Assessment: Impression: Arthritis Hypertension Fibromyalgia Hiatal hernia. varicose legs right leg, to have surgery in the future not sure when Stage IA left breast cancer/no evidence of recurrence Asymmetry of the breast Plan: 1. Right breast mammoplasty secondary to asymmetry of breast related to cancer surgery Risk and benefits of procedure discussed with the patient. She was given the option of seeing a plastic surgeon and declined. I discussed with the breast would not be exactly the same following the procedure but will be closer than now. Additionally risk include but are not limited to bleeding, infection, reaction to the anesthetic. She understands she could have some skin necrosis. She understands she could have some nipple areolar necrosis or decreased sensation or loss. We discussed that we'll most likely leave drains in place. She understands and wishes to proceed.
== END ==
LOC: WWCWWP 14:45
PROVIDERS: ATTEND Surgery
DX: N64.89 Other specified disorders of breast (principal); M19.90 Unspecified osteoarthritis, unspecified site; I10 Essential (primary) hypertension; M79.7 Fibromyalgia; K44.9 Diaphragmatic hernia without obstruction or gangrene; I83.91 Asymptomatic varicose veins of right lower extremity; F41.9 Anxiety disorder, unspecified; Z85.3 Personal history of malignant neoplasm of breast; Z79.82 Long term (current) use of aspirin; Z79.899 Other long term (current) drug therapy; Z87.891 Personal history of nicotine dependence

== ENCOUNTER 2021-04-03 06:54 | Day surgery (SDC) | payer OTHER ==
[2021-03-30 12:26] VITALS: BMI 33.5
[~2021-04-03 06:54] MED LIST changes: -HEPARIN SODIUM,PORCINE 5,000 UNIT/ML 1 ML VIAL SQ ONE; +HEPARIN SODIUM,PORCINE/PF 5,000 UNIT/0.5 ML SYRINGE SQ PRN; -HYDROmorphone 1 MG/ML 1 ML SYRINGE IVP PRN; -LACTATED RINGERS 1,000 ML IV SCH; -ONDANSETRON 4 MG/2 ML VIAL IVP ONE; +Pre Op ABX Message 1 EACH MISC MISCELLANE ONE; -fentaNYL (PF) 50 MCG/ML 2 ML AMP IV PRN
[2021-04-03] MEDS ORDERED: LACTATED RINGERS 1,000 ML IV ONE (07:35)
[2021-04-03] MEDS ORDERED: ONDANSETRON 4 MG/2 ML VIAL ONE ×2 (07:39→14:57)
[2021-04-03] MEDS ORDERED: DEXAMETHASONE SOD PHOSPHATE 4 MG/ML 1 ML VIAL IVP ONE (07:42)
[2021-04-03] MEDS ORDERED: SUCCINYLCHOLINE CHLORIDE 100 MG/5 ML SYR IV ONE (08:30)
[2021-04-03] MEDS ORDERED: LIDOCAINE 1% INJ 10MG/ML (20 ML MDV) ONE (08:30)
[2021-04-03] MEDS ORDERED: GLYCOPYRROLATE 0.2 MG/ML 2 ML VIAL ONE (08:30)
[2021-04-03] MEDS ORDERED: HYDROmorphone (PF) 1 MG/ML ONE (08:30)
[2021-04-03] MEDS ORDERED: PROPOFOL 10 MG/ML 20 ML VIAL IV ONE (08:30)
[2021-04-03] MEDS ORDERED: MIDAZOLAM 2 MG/2 ML VIAL ONE (08:30)
[2021-04-03] MEDS ORDERED: NEOSTIGMINE 1 MG/ML 10 ML VIAL ONE (08:30)
[2021-04-03] MEDS ORDERED: ROCURONIUM 10 MG/ML (5 ML VIAL) IV ONE (08:30)
[2021-04-03] MEDS ORDERED: fentaNYL (PF) 50 MCG/ML 2 ML AMP ONE (08:30)
--- NOTE | 2021-04-03 11:25 | P.OP ---
Date of Procedure: 04/03/21 Preoperative Diagnosis: Asymmetry right breast larger than left secondary to left breast lumpectomy for cancer Postoperative Diagnosis: Same Procedure(s) Performed: Right breast mammoplasty Anesthesia: ANGEL Surgeon: Nola Sanchez Estimated Blood Loss (ml): 20 Pathology: other (Breast tissue and skin) Condition: stable Disposition: same day Indications for Procedure: Right breast larger than left secondary to left breast lumpectomy/asymmetry Operative Findings: Fibrofatty breast tissue Description of Procedure: The patient was seen in the preoperative area where the markings were placed for the right breast mammoplasty. The left nipple areolar complex was at approximately 34 cm and the right was elevated to approximately that same level. The markings at the midline, [place] line and the , New nipple location, and the vertical limbs and remainder of the markings for mammoplasty were made in the preoperative area. Following this the patient was taken to the operating room. Following induction of general anesthesia both breasts were prepped and draped in a sterile fashion. An inferior pedicle was utilized and the skin overlying this area was de-epithelialized. Extended superiorly over the area of the areolar. The areaola had been marked with a 45 cm cookie cutter. The pedicle width was approximately 8 cm. Incisions were then made to follow up the vertical limbs. The vertical limb flaps were developed superiorly both medially and laterally. The inferior pedicle was carefully preserved. Following this the tissue in the triangular areas medially and laterally were excised. The tissue and skin excised was approximately 0.68 pounds. After we were assured that hemostasis was attained the wound was well irrigated. Surgicel in powder form was applied. 2 JAVAD drains were placed one medially and one laterally. The flaps were then brought together using 3-0 Vicryl suture. This was followed by 4-0 Monocryl and then a nylon skin suture. Following this the 45 cookie cutter was placed over the area for the new nipple and a skin incision was made. The nipple areolar complex was brought out through this site. This was secured using 3-0 Vicryl suture followed by running 4-0 Monocryl and a nylon skin suture. The patient tolerated the procedure in stable condition. All instrument and sponge counts were correct at the end of the case. The drains were secured using nylon sutures.
--- NOTE | 2021-04-03 11:27 | P.DS ---
Providers Attending physician: Nola Sanchez Primary care physician: Federico Hastings Plan - Discharge Summary Discharge Rx Participant: Yes New Discharge Prescriptions: No Action Quinapril HCl [Accupril] 10 mg PO HS Cyclobenzaprine [Flexeril] 10 mg PO BID PRN PRN Reason: Pain Atorvastatin [Lipitor] 10 mg PO HS DULoxetine HCL [Cymbalta] 60 mg PO QAM Aspirin EC [Ecotrin Low Dose] 81 mg PO DAILY amLODIPine [Norvasc] 10 mg PO HS Ibuprofen 1,000 mg PO HS Inulin/Chromium Picolinate [Fiber Gummies Chew] 1 each PO QAM Exemestane [Aromasin] 25 mg PO HS Calcium Carbonate/Vitamin D3 [Calcium 600 mg-Vit D3 10Mcg (400 Unit)] 1 each PO BID Loratadine 10 mg PO QAM Esomeprazole Magnesium [NexIUM 24Hr] 20 mg PO HS Meclizine [Antivert] 25 mg PO QAM PRN PRN Reason: VERTIGO Ascorbic Acid [Vitamin C] 1,000 mg PO DAILY Discharge Medication List Aspirin EC [Ecotrin Low Dose] 81 mg PO DAILY 06/08/18 [History] Atorvastatin [Lipitor] 10 mg PO HS 06/08/18 [History] Cyclobenzaprine [Flexeril] 10 mg PO BID PRN 06/08/18 [History] DULoxetine HCL [Cymbalta] 60 mg PO QAM 06/08/18 [History] Quinapril HCl [Accupril] 10 mg PO HS 06/08/18 [History] Ibuprofen 1,000 mg PO HS 07/08/18 [History] amLODIPine [Norvasc] 10 mg PO HS 07/08/18 [History] Calcium Carbonate/Vitamin D3 [Calcium 600 mg-Vit D3 10Mcg (400 Unit)] 1 each PO BID 07/27/20 [History] Esomeprazole Magnesium [NexIUM 24Hr] 20 mg PO HS 07/27/20 [History] Exemestane [Aromasin] 25 mg PO HS 07/27/20 [History] Inulin/Chromium Picolinate [Fiber Gummies Chew] 1 each PO QAM 07/27/20 [History] Loratadine 10 mg PO QAM 07/27/20 [History] Meclizine [Antivert] 25 mg PO QAM PRN 07/27/20 [History] Ascorbic Acid [Vitamin C] 1,000 mg PO DAILY 03/30/21 [History] Follow up Appointment(s)/Referral(s): Nola Sanchez MD [STAFF PHYSICIAN] - 1 Week Activity/Diet/Wound Care/Special Instructions: Wear bra at all times May shower after 48 hours Teaching patient drain care Do not drive if taking narcotic pain medication for at least 24 hours from discharge Discharge Disposition: HOME SELF-CARE
[2021-04-03 11:52] VITALS: TEMP 97.4
[2021-04-03 13:19] VITALS: RESP 16
[2021-04-03 15:05] VITALS: BP 127/77; PULSE 83
== END 2021-04-03 15:29 | disposition home or self-care (01) ==
LOC: OR 06:54
PROVIDERS: ATTEND Surgery
DX: N65.1 Disproportion of reconstructed breast (principal); J44.9 Chronic obstructive pulmonary disease, unspecified; E78.5 Hyperlipidemia, unspecified; I10 Essential (primary) hypertension; M19.90 Unspecified osteoarthritis, unspecified site; M79.7 Fibromyalgia; K44.9 Diaphragmatic hernia without obstruction or gangrene; I83.91 Asymptomatic varicose veins of right lower extremity; Z87.891 Personal history of nicotine dependence; Z85.3 Personal history of malignant neoplasm of breast; Z80.1 Family history of malignant neoplasm of trachea, bronchus and lung; Z80.8 Family history of malignant neoplasm of other organs or systems; Z80.7 Family history of other malignant neoplasms of lymphoid, hematopoietic and related tissues; Z79.811 Long term (current) use of aromatase inhibitors; Z79.82 Long term (current) use of aspirin
CPT/HCPCS: 19318; 88305; J2250; J1100; J2710; J0690; J2405; J2001; J3010; J1170; J0330; J2704; J1644

== ENCOUNTER → 2021-04-12 | Outpatient (CLI) | payer OTHER ==
--- NOTE | 2021-04-12 13:44 | P.PN ---
Progress Note - Text Progress Note Date: 04/12/21 Yvette is a 70 year old white female status post reduction mammoplasty of the right breast on 04-03-21. Postoperatively she is done well without complaints. She is not complaining of any fever or chills. Pathology benign breast tissue. The patient has good sensation to the nipple areolar complex. Physical examination: Lungs: Clear Heart: S1-S2 Incision: Mild erythema at the suture line no evidence of infection JAVAD lateral aspect minimal output is serous in nature JAVAD medial aspect approximately 50-40 mL per day serous in nature Impression: 1. Patient doing well postoperative Plan: 1. DC lateral JAVAD drain 2. Will give patient another week of antibiotics 3. Follow-up next week CC: Dr. Hastings
== END ==
LOC: WWCWWP 13:26
PROVIDERS: ATTEND Surgery
DX: Z09 Encounter for follow-up examination after completed treatment for conditions other than malignant neoplasm (principal); Z98.82 Breast implant status; Z91.041 Radiographic dye allergy status; Z88.7 Allergy status to serum and vaccine; Z87.891 Personal history of nicotine dependence

== ENCOUNTER → 2021-04-20 | Outpatient (CLI) | payer OTHER ==
[2021-04-20 09:40] VITALS: BP 133/92; PULSE 83; RESP 16; TEMP 98
--- NOTE | 2021-04-20 10:21 | P.PN ---
Progress Note - Text Progress Note Date: 04/20/21 Yvette is a 70 year old white female status post reduction mammoplasty of the right breast on 04-03-21. Postoperatively she is done well without complaints. She is not complaining of any fever or chills. Pathology benign breast tissue. The patient has good sensation to the nipple areolar complex. The patient had a JAVAD drain with minimal output at this time and JAVAD drain is ready for removal. She does have some erythema on the medial aspect of the breast patient states this has not increased. The breast does appear to be mildly swollen. Physical examination: Lungs: Clear Heart: S1-S2 Incision: Mild erythema at the suture line no evidence of infection JAVAD lateral aspect minimal output is serous in nature JAVAD medial aspect approximately 50-40 mL per day serous in nature Impression: 1. Patient doing well postoperative Plan: 1. DC JAVAD drain 2. Will change antibiotics to Bactrim 3. Ultrasound to assure there is no fluid collection which would benefit from drainage 4. Follow up next week CC: Dr. Hastings
== END ==
LOC: WWCWWP 09:23
PROVIDERS: ATTEND Surgery
DX: Z09 Encounter for follow-up examination after completed treatment for conditions other than malignant neoplasm (principal); Z98.82 Breast implant status; Z91.041 Radiographic dye allergy status; Z88.7 Allergy status to serum and vaccine; Z87.891 Personal history of nicotine dependence

== ENCOUNTER → 2021-04-20 | Outpatient (CLI) | payer OTHER ==
--- NOTE | 2021-04-20 13:46 | USB ---
EXAMINATION TYPE: US breast complete RT DATE OF EXAM: 04/20/2021 COMPARISON: 06/30/2020 CLINICAL HISTORY: N64.4 BREAST PAIN. FINDINGS: All four quadrants and the retroareolar region and axilla were scanned with ultrasound. There are mu ltiple collections throughout the right breast including right breast 12:00 3.0 x 4.0 x 7.4 cm, right breast 9:00 X 0.7 cm. IMPRESSION: Multiple simple appearing collections are seen throughout the right breast, most likely postoperative in etiology. Drainage can be performed for symptomatic relief. Clinical follow-up is recommended. BI-RADS 2, benign.
[2021-04-20 14:12] VITALS: RESP 18; TEMP 97.9
--- NOTE | 2021-04-20 15:25 | USB ---
EXAMINATION TYPE: US breast aspiration single RT, US breast aspiration ea add RT DATE OF EXAM: 04/20/2021 COMPARISON: Ultrasound earlier same date CLINICAL HISTORY: Fluid collection status post breast surgery with pain. Findings: The risks, benefits and alternatives were carefully to the patient and informed consent was obtained. The patient was prepped and draped in the normal sterile fashion. The right breast collection at 12:00 was visualized. Lidocaine was used for local analgesia. A 14-gau Ideacentric spinal needle was inserted into the collection under direct fluoroscopic guidance. 125 mL of straw -colored mildly turbid fluid was aspirated under direct fluoroscopic guidance and the collection comp letely collapsed. The right breast collection at 9:00 was visualized. Lidocaine was used for local able G0. A 14-gauge spinal needle was inserted into the collection under direct fluoroscopic guidance. 37 mL of straw-col ored mildly turbid fluid was aspirated under direct fluoroscopic guidance and the collection collapse d. IMPRESSION: Successful aspiration of 2 large postoperative collections in the right breast at 9:00 and 12:00. Cli nical follow-up is recommended. Fluid was sent for culture and sensitivity. BI-RADS 2, benign.
[2021-04-20 15:31] VITALS: BP 149/77; PULSE 88
== END | disposition home or self-care (01) ==
LOC: RADUSWWP 12:35
PROVIDERS: ATTEND Surgery
DX: N64.4 Mastodynia (principal); Z98.890 Other specified postprocedural states
CPT/HCPCS: 87070; 87205; 87075; 87077; 87186; 76942; 19000; 19001; 76641; J2001

== ENCOUNTER → 2021-04-24 | Outpatient (CLI) | payer OTHER ==
[2021-04-24 15:29] VITALS: BP 145/81; PULSE 97; RESP 18; TEMP 97.7
--- NOTE | 2021-04-24 16:39 | P.PN ---
Progress Note - Text Progress Note Date: 04/24/21 Yvette is a 70 year old white female status post reduction mammoplasty of the right breast on 04-03-21. Postoperatively she is done well without complaints. She is not complaining of any fever or chills. Pathology benign breast tissue. The patient has good sensation to the nipple areolar complex. The patient had some mild erythema on the medial aspect of the breast and was started on Bactrim last week. Additionally she had fluid aspirated under ultrasound guidance and cultures revealed pseudomonas sensitive to ciprofloxacin. The Bactrim was stopped and she was started on ciprofloxacin. The breast does appear to be mildly swollen. The patient states erythema of the breast has decreased since her last visit. She is not complaining of any pain in her breast. Physical examination: Lungs: Clear Heart: S1-S2 Incision: Erythema medial aspect of the right breast Impression: 1. Patient doing well postoperative/persistent erythema medial and inferior aspect of the breast Plan: 1. Sutures removed 2. Will change antibiotics to ciprofloxin 3. Consider ultrasound repeated to assure that there is no further fluid collection 4. I discussed with the patient possible admission to the hospital for IV antibiotics. At this time she has declined. She has a wedding she wishes to attend this weekend and states that if the erythema has not improved she will consider this next week.
== END ==
LOC: WWCWWP 14:22
PROVIDERS: ATTEND Surgery
DX: L76.82 Other postprocedural complications of skin and subcutaneous tissue (principal); Z87.891 Personal history of nicotine dependence; Z91.041 Radiographic dye allergy status; Z88.7 Allergy status to serum and vaccine

== ENCOUNTER 2021-05-02 09:12 | Observation (INO) | payer OTHER, MEDICARE ==
--- NOTE | 2021-05-02 11:22 | P.GSHP ---
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 Post procedure she received radiation therapy. She had an Oncotype test done which was low and she did not receive chemotherapy. She had a bilateral mammogram performed on 06-30-20 This was benign BIRADS 2 and follow-up mammogram of both breasts in 1 year was recommended. She was started on Arimidx she stopped this secondary to hot flashes, she than started aromasin which she is tolerating without difficulty. She states that her nails are better. She is having decreased night sweats. Secondary to marked asymmetry of the brush underwent a right breast mammoplasty on 7620. Postprocedure she did well but developed some erythema of the medial and inferior aspect of the breast. She was treated with oral antibiotics with intermittent resolution. When she was seen on 04-20-21 she was noted to have swelling of the right breast and ultrasound was performed which time the seroma was identified. Proximally 160 mL of fluid was removed and cultures revealed pseudomonas. She was changed to an antibiotics to which this was sensitive. She returns today for repeat ultrasound. A repeat ultrasound only approximately 15 mL of fluid was identified this was aspirated and this was serous-appearing in nature. It will be sent for culture as well. The patient however states the erythema was improving but yesterday it became more pr onounced again in the medial aspect of the breast. She is not complaining of any pain. She is not complaining of any fever or chills. Family history: sister.: Lung cancer Father: Esophageal cancer Great-grandmother: Uterine cancer sister: lymphoma Medical history: Arthritis Hypertension Fibromyalgia Hiatal hernia. varicose legs right leg, to have surgery in the future not sure when Surgical history: Left breast lumpectomy and sentinel node biopsy Hysterectomy Past surgery Fractured nose Cholecystectomy Social history: Smoke: Stopped 11 years ago, smoked 1 pack per day for 20 years Alcohol: Occasional wine Drugs: Negative Review of systems: HEENT: Vertigo at times hot flashes Lungs: Former smoker Cardiovascular: Hypertension GI: Spastic colon : Negative Musculoskeletal: Arthritis Integument: Negative Neurologic: Negative Psychiatric: Negative Endocrine: Negative ALLERGIES: Seasonal ALLERGIES Social History: Nicotine: Negative former smoker stopped 10 years ago Alcohol: Occasionally Drugs: Negative - Constitutional Constitutional: Denies chills, Denies fever - EENT Eyes: denies blurred vision, denies pain Ears: deny: decreased hearing, tinnitus Ears, nose, mouth and throat: Denies headache, Denies sore throat - Breasts Breasts: bilateral: as per HPI - Cardiovascular Cardiovascular: Denies chest pain, Denies shortness of breath - Respiratory Respiratory: Denies cough, Denies 7 - Gastrointestinal Gastrointestinal: Denies abdominal pain, Denies diarrhea, Denies nausea, Denies vomiting - Genitourinary (Female) Genitourinary: Denies dysuria, Denies hematuria - Menstruation Menstruation: Reports postmenopausal - Musculoskeletal Musculoskeletal: Denies myalgias - Integumentary Integumentary: Reports as per HPI - Neurological Neurological: Denies numbness, Denies weakness - Psychiatric Psychiatric: Denies anxiety, Denies depression - Endocrine Endocrine: Denies fatigue, Denies weight change - Hematologic/Lymphatic Comment: none - Allergic/Immunologic Allergic/Immunologic: Reports as per HPI Past Medical History Past Medical History: Cancer, Fibromyalgia, Hyperlipidemia, Hypertension, Osteoarthritis (OA) Additional Past Medical History / Comment(s): Sinus problems/seasonal allergies; Hiatal hernia; breast cancer at age 67; History of Any Multi-Drug Resistant Organisms: None Reported Past Surgical History: Back Surgery, Breast Surgery, Cholecystectomy, Hysterectomy Additional Past Surgical History / Comment(s): left breast lumpectomy 07/14/18 with radiation therapy; Past Anesthesia/Blood Transfusion Reactions: No Reported Reaction Past Psychological History: Anxiety Smoking Status: Former smoker Past Alcohol Use History: Rare Past Drug Use History: None Reported - Past Family History Father Family Medical History: Cancer Additional Family Medical History / Comment(s): throat Sister(s) Additional Family Medical History / Comment(s): CANCER RIB CAGE #2 SISTER LYMPHOMA Medications and Allergies Home Medications Medication Instructions Recorded Confirmed Type Aspirin EC [Ecotrin Low Dose] 81 mg PO DAILY 06/08/18 05/02/21 History Atorvastatin [Lipitor] 10 mg PO HS 06/08/18 05/02/21 History Cyclobenzaprine [Flexeril] 10 mg PO BID PRN 06/08/18 05/02/21 History DULoxetine HCL [Cymbalta] 60 mg PO QAM 06/08/18 05/02/21 History Quinapril HCl [Accupril] 10 mg PO HS 06/08/18 05/02/21 History Ibuprofen 1,000 mg PO HS 07/08/18 05/02/21 History amLODIPine [Norvasc] 10 mg PO HS 07/08/18 05/02/21 History Calcium Carbonate/Vitamin D3 1 each PO BID 07/27/20 05/02/21 History [Calcium 600 mg-Vit D3 10Mcg (400 Unit)] Esomeprazole Magnesium [NexIUM 20 mg PO HS 07/27/20 05/02/21 History 24Hr] Exemestane [Aromasin] 25 mg PO HS 07/27/20 05/02/21 History Inulin/Chromium Picolinate [Fiber 1 each PO QAM 07/27/20 05/02/21 History Gummies Chew] Loratadine 10 mg PO QAM 07/27/20 05/02/21 History Meclizine [Antivert] 25 mg PO QAM PRN 07/27/20 05/02/21 History Ascorbic Acid [Vitamin C] 1,000 mg PO DAILY 03/30/21 05/02/21 History Allergies Allergy/AdvReac Type Severity Reaction Status Date / Time Iodinated Contrast Media Allergy Rash/Hives Verified 05/02/21 09:24 flu shot Allergy Mild Rash/Hives Uncoded 05/02/21 09:24 Surgical - Exam Vital Signs Temp Pulse Resp BP 98.3 F 90 16 129/75 05/02/21 09:29 05/02/21 09:29 05/02/21 09:29 05/02/21 09:29 BMI 33.5 - General no distress - Eyes normal ocular movement - ENT no hearing loss, no congestion - Neck no masses, trachea midline - Respiratory normal respiratory effort, clear to auscultation - Cardiovascular Rhythm: regular Heart Sounds: normal: S1, S2 - Abdomen Abdomen: soft - Integumentary Patient is clean and dry with no evidence of infection of the incision on the right breast/the patient does have erythema in the medial and inferior aspects of the right breast - Neurologic no disoriented, no combative - Musculoskeletal normal gait, normal posture - Psychiatric oriented to time, oriented to person, oriented to place, speech is normal, memory intact Assessment and Plan Assessment: Impression: 1. Patient approximately one month status post right breast mammoplasty/she has had intermittent erythema of the medial and inferior aspect of the breast treated with oral antibiotics as an outpatient. The erythema is more pronounced today although the patient denies any pain at this site. 2. Ultrasound performed today 15 mL of fluid aspirated no residual seroma or abscess identified in the breast this is sent for culture 3. HTN 4. High cholesterol Plan: 1. Admission for IV antibiotic therapy 2. Infectious disease consult
[2021-05-02] MEDS ORDERED: NALOXONE 0.4 MG/ML 1 ML VIAL IV PRN (11:26)
[2021-05-02] MEDS ORDERED: MAGNESIUM HYDROXIDE 2,400 MG/10 ML CUP PO PRN (12:28)
[2021-05-02] MEDS ORDERED: MELATONIN 3 MG TABLET PO PRN (12:28)
[2021-05-02] MEDS ORDERED: LACTULOSE 20 GM/30 ML CUP PO PRN (12:28)
[2021-05-02] MEDS ORDERED: MAG HYDROX/AL HYDROX/SIMETH 30 ML CUP PO PRN (12:28)
[2021-05-02] MEDS ORDERED: CALCIUM CARBONATE 500 MG CHEWABLE PO PRN (12:28)
[2021-05-02] MEDS ORDERED: ONDANSETRON 4 MG/2 ML VIAL IVP PRN (12:28)
[2021-05-02] MEDS ORDERED: VANCOMYCIN IV PER PHARMACY 1 EACH MISC MISCELLANE PRN (12:35)
[2021-05-02 13:31] LABS: Basophils # (A) 0.1 k/uL (0-0.2); Basophils % (A) 1 %; Eosinophils # (A) 0.3 k/uL (0-0.7); Eosinophils % (A) 3 %; HGB 11.6 gm/dL (11.4-16.0); Lymphocytes # (A) 2.4 k/uL (1.0-4.8); Lymphocytes % (A) 29 %; MCH 29.6 pg (25.0-35.0); MCHC 32.1 g/dL (31.0-37.0); MCV 92.3 fL (80.0-100.0); Mean Platelet Volume 7.2; Monocytes # (A) 0.6 k/uL (0-1.0); Monocytes % (A) 7 %; Neutrophils % (A) 59 %; Platelet Count 335 k/uL (150-450); RDW 12.7 % (11.5-15.5); WBC 8.4 k/uL (3.8-10.6)
[2021-05-02 13:42] LABS: Albumin 3.6 g/dL (3.5-5.0); Calcium 8.9 mg/dL (8.4-10.2); Potassium 3.7 mmol/L (3.5-5.1); Total Bilirubin 0.1 mg/dL (0.2-1.3)
[2021-05-02] MEDS ORDERED: VANCOMYCIN 2,000 MG in SODIUM CHLORIDE 0.9% 500 ML 500 ML IVPB ONE (14:00)
--- NOTE | 2021-05-02 14:14 | USB ---
EXAMINATION TYPE: US breast aspiration single RT DATE OF EXAM: 05/02/2021 CLINICAL HISTORY: N64.9 Disorder of breast. TECHNIQUE: Ultrasound guided vaccuum assisted aspiration of right breast. COMPARISON: NONE FINDINGS: The ultrasound guided core biopsy procedure was explained to the patient. The risks, benefits, alternatives were discussed. An informed consent was then obtained. Timeout was performed. The patient was placed in supine positioning for imaging and for the procedure. The overlying skin was prepped with betadine and sterilely draped in usual sterile fashion. Lidocaine 1% was used as anesthetic into the skin and deeper breast tissue up to area of concern in the breast. An area outside of the inflamed red breast was chosen for the approach. Under ultrasound guidance, an 18 gauge vacuum assisted needle was used to obtain 3 separate aspirates. This is fluidlike with some blood-tinged aspirate. The needle was placed into the hypoechoic area. Areas appear to be loculated. Advancement of the needle into various areas were obtained some initial aspirate and then no return. Moderate residual remains despite multiple attempts. Good hemostasis was obtained with direct pressure. Discharge instructions were discussed with the patient. The patient will follow up with the referring physician for results. The 3 aspirates were sent for culture and sensitivity given the difficult nature of aspiration and prior positive result. The patient tolerated the procedure well without any immediate complication. The patient was discharged to home in stable condition. IMPRESSION: 1. Partially successful aspiration of hypoechoic area within the right breast. Moderate residual remains diffuse be loculated fluid. Recommendations: 1. Recommendations are pending pathology results. Pathology Results: Benign RIGHT BREAST, ASPIRATE: Acute inflammatory cells, blood and histiocytes consistent with inflamed cyst contents versus abscess. Recommendation Follow up ultrasound of the right breast in 6 months. [facility]
[2021-05-02] MEDS: DEXTROSE 5%-0.45% NACL 1,000 ML IV SCH (14:47)
[2021-05-02] MEDS ORDERED: HEPARIN SODIUM,PORCINE/PF 5,000 UNIT/0.5 ML SYRINGE SQ SCH (16:00)
[2021-05-02] MEDS: CEFEPIME 2 GM in SODIUM CHLORIDE 0.9% 100 ML IVPB SCH (17:50)
--- NOTE | 2021-05-02 18:14 | P.CONS ---
History of Present Illness - Reason for Consult Consult date: 05/02/21 Medical management Requesting physician: Nola Sanchez - Chief Complaint Right breast redness wound - History of Present Illness Consultation: This is a very pleasant 70-year-old patient, who had left breast cancer followed by lumpectomy and 4 lymph nodes removed in June 2018. This was followed by radiation treatment. Subsequent to that her breast size was DD on the right side and see on the left side. Patient had to cut in half to bras of the same size invading the same. Subsequently on march this year patient underwent reduction mammoplasty on the right side with Dr. Tamela merino. About 2 weeks ago patient developed infection and ultrasound was carried out and subsequently I&D was carried out. Fluid was obtained. Patient received a course of antibiotic. Did not improve. Was subsequently given Bactrim not with much help. On April 20 cultures did come back showing Pseudomonas aeruginosa, drainage of seroma. And patient's present ciprofloxacin. Patient continued to have redness and some local tenderness. Today a repeat ultrasound was done and about 50 mL of fluid was aspirated. Sinus appearing. Patient denies any fever and chills. Admitted for further IV antibiotics. That is redness of the lower half of the breast. An open wound at the 6 o'clock position. Patient did not tolerate arimidex because of hot flashe s. She has been tolerating aromasin. Patient does not have any significant pain in the breast. Patient is accompanied by her grand daughter in the room. Review of systems: GEN.: None EYES: None HEENT: None NECK: None RESPIRATORY: None CARDIOVASCULAR: None GASTROINTESTINAL: None GENITOURINARY: None MUSCULOSKELETAL: None LYMPHATICS: None HEMATOLOGICAL: None PSYCHIATRY: None NEUROLOGICAL: None Past medical history to include: Fibromyalgia, hypertension, hyperlipidemia, osteoarthritis, hiatal hernia, left breast cancer with lumpectomy and 4 lymph nodes removed, followed by radiation treatment. Social history: . Alcohol occasionally. Patient smoked for about 40 years over half a p ack a day stopped 15 years ago. Family history: Throat cancer Physical examination: VITAL SIGNS: 97.6, 95, 18, 139/82, 95% room air GENERAL: BMI 36.4, sitting up, comfortable. EYES: Pupils equal. Conjunctiva normal. HEENT: External appearance of nose and ears normal, oral cavity grossly normal. NECK: JVD not raised; masses not palpable. HEART: First and second heart sounds are normal; no edema. LUNGS: Respiratory rate normal; clear to auscultation. ABDOMEN: Soft, nontender, liver spleen not palpable, no masses palpable. PSYCH: Alert and oriented x3; mood and affect normal. MUSCULAR skeletal: Pres. of OA BREAST exam: Done in the presence of granddaughter this redness around the right nipple extending to the lower half of the breast. Slight tenderness. Doesn't open wound about 2 cm x 2 cm at 6 o'clock position. Slight yellow base. NEUROLOGICAL: Cranial nerves grossly intact; no facial asymmetry, power and sensation grossly intact. LYMPHATICS: No lymph nodes palpable in the axilla and neck INVESTIGATIONS, reviewed in the clinical context: WBC 8.4 hemoglobin 11.6 platelets 335 potassium 3.7 creatinine 1.2 Wound culture from [April 20]: Pseudomonas aeruginosa Assessment and plan: -Acute cellulitis with secondary incision wound infection of the right breast, with previous cultures growing Pseudomonas aeruginosa. Patient having failed treatment with ciprofloxacin. Patient now admitted for IV antibiotics. Started IV cefepime and IV vancomycin. Today a seroma was drained. Cultures are pending. Consultation to ID. -Obesity BMI 36.4 Weight loss measures and follow-up with PCP -Chronic fibromyalgia Pain medications as needed -Hyperlipidemia Lipitor 10 mg daily at bedtime -Essential hypertension Norvasc 10 mg daily at bedtime, Accupril 10 mg daily at bedtime -Primary osteoarthritis She was pain medications as needed -Patient's creatinine is 1.2. Will check patient's UA. Renal ultrasound. Stop NSAID. IV fluids. Care was discussed with the patient and granddaughter bedside. Questions answered. ID has been consulted. Patient IV vancomycin and cefepime. Renal ultrasound and UA. Repeat labs. Thank you Dr. Mazariegos - Past Medical History Past Medical History: Cancer, Fibromyalgia, Hyperlipidemia, Hypertension, Osteoarthritis (OA) Additional Past Medical History / Comment(s): Sinus problems/seasonal allergies; Hiatal hernia; breast cancer at age 67; History of Any Multi-Drug Resistant Organisms: None Reported Past Surgical History: Back Surgery, Breast Surgery, Cholecystectomy, Hysterectomy Additional Past Surgical History / Comment(s): left breast lumpectomy 07/14/18 with radiation therapy; Past Anesthesia/Blood Transfusion Reactions: No Reported Reaction Past Psychological History: Anxiety Smoking Status: Former smoker Past Alcohol Use History: Rare Past Drug Use History: None Reported - Past Family History Father Family Medical History: Cancer Additional Family Medical History / Comment(s): throat Sister(s) Additional Family Medical History / Comment(s): CANCER RIB CAGE #2 SISTER LYMPHOMA Mother Family Medical History: Pulmonary Embolus Medications and Allergies Home Medications Medication Instructions Recorded Confirmed Type Aspirin EC [Ecotrin Low Dose] 81 mg PO DAILY 06/08/18 05/02/21 History Atorvastatin [Lipitor] 10 mg PO HS 06/08/18 05/02/21 History Cyclobenzaprine [Flexeril] 10 mg PO BID PRN 06/08/18 05/02/21 History DULoxetine HCL [Cymbalta] 60 mg PO QAM 06/08/18 05/02/21 History Quinapril HCl [Accupril] 10 mg PO HS 06/08/18 05/02/21 History Ibuprofen 1,000 mg PO HS 07/08/18 05/02/21 History amLODIPine [Norvasc] 10 mg PO HS 07/08/18 05/02/21 History Calcium Carbonate/Vitamin D3 1 each PO BID 07/27/20 05/02/21 History [Calcium 600 mg-Vit D3 10Mcg (400 Unit)] Esomeprazole Magnesium [NexIUM 20 mg PO HS 07/27/20 05/02/21 History 24Hr] Exemestane [Aromasin] 25 mg PO HS 07/27/20 05/02/21 History Inulin/Chromium Picolinate [Fiber 1 each PO QAM 07/27/20 05/02/21 History Gummies Chew] Loratadine 10 mg PO QAM 07/27/20 05/02/21 History Meclizine [Antivert] 25 mg PO QAM PRN 07/27/20 05/02/21 History Ascorbic Acid [Vitamin C] 1,000 mg PO DAILY 03/30/21 05/02/21 History Allergies Allergy/AdvReac Type Severity Reaction Status Date / Time Iodinated Contrast Media Allergy Rash/Hives Verified 05/02/21 09:24 flu shot Allergy Mild Rash/Hives Uncoded 05/02/21 09:24 Physical Exam Vitals: Vital Signs Temp Pulse Pulse Resp BP BP Pulse Ox 05/02/21 15:49 97.4 F L 72 18 131/76 95 05/02/21 11:50 97.6 F 95 18 139/82 95 05/02/21 11:02 98.1 F 84 16 138/76 05/02/21 09:29 98.3 F 90 16 129/75 Intake and Output 05/02/21 05/02/21 05/02/21 06:59 14:59 22:59 Other: Weight 111.9 kg Results CBC & Chem 7: 05/02/21 13:10 05/02/21 13:10 Labs: Abnormal Lab Results - Last 24 Hours (Table) 05/02/21 Range/Units 13:10 Creatinine 1.20 H (0.52-1.04) mg/dL Glucose 151 H (74-99) mg/dL Total Bilirubin 0.1 L (0.2-1.3) mg/dL Total Protein 6.0 L (6.3-8.2) g/dL
[2021-05-02] MEDS ORDERED: ENOXAPARIN 40 MG/0.4 ML SYRINGE SQ SCH (18:15)
[2021-05-02] MEDS: LACTATED RINGERS 1,000 ML IV SCH (18:42)
[2021-05-02 19:46] LABS: Appearance,Urine Clear (Clear); Bilirubin,Urine Negative (Negative); Blood,Urine Negative (Negative); Color,Urine Yellow; Glucose,Urine (UA) Negative (Negative); Ketones,Urine Negative (Negative); Leukocyte Esterase,Urine Negative (Negative); Nitrite,Urine Negative (Negative); PH, Urine 5.5 (5.0-8.0); Protein,Urine Negative (Negative); Urobilinogen,Urine <2.0 mg/dL (<2.0)
[2021-05-02] MEDS ORDERED: MECLIZINE 25 MG TAB PO PRN (20:24)
[2021-05-02] MEDS ORDERED: CYCLOBENZAPRINE 10 MG TAB PO PRN (20:24)
[2021-05-02] MEDS: amLODIPine 10 MG TAB PO SCH (20:57)
[2021-05-02] MEDS: ATORVASTATIN 10 MG TAB PO SCH (20:57)
[2021-05-02] MEDS: ACETAMINOPHEN TAB 325 MG TAB PO PRN (20:58)
[2021-05-02] MEDS: lisinopriL 10 MG TAB PO SCH (20:58)
[2021-05-02] MEDS ORDERED: CIPROFLOXACIN/DEXTROSE PMX 400 MG in DEXTROSE/WATER 1 200ML.BAG IVPB SCH (21:00)
[2021-05-02] MEDS ORDERED: EXEMESTANE 25 MG PO SCH (21:00)
--- NOTE | 2021-05-02 23:29 | P.CONS ---
History of Present Illness - Reason for Consult Consult date: 05/02/21 right breast cellulitis Requesting physician: Nola Sanchez - Chief Complaint right breast swelling and redness x few days - History of Present Illness Patient is a 70-year-old female with a past medical history significant for right breast mammoplasty done on 04/03/2021 patient has been treated with oral Keflex perioperatively postprocedure patient developed erythema of the medial and inferior aspect of the right breast for the patient has been treated with oral antibiotics on 04/20/2021 patient was noted to have swelling of the right breast and ultrasound was performed with evidence of seroma patient did have drainage of one sixty amount of fluid and culture obtained which subsequently grew Pseudomonas aeruginosa patient antibiotic were adjusted however the patient was not sure to tell me what antibiotic she took patient did have a reevaluation by her surgeon this morning and noticed to have persistent swelling and redness to the right breast area while the patient has been admitted to hospital patient is significant pain to the right breast area the main thing is the swelling of the redness patient denies any drainage from the right breast. Denies having had any fever or chills no chest pain shortness breath or cough no abdominal pain or any diarrhea on presentation the hospital patient was afebrile patient did have a normal white count with no left shift kidney function was normal patient did have repeat drainage procedure and cul tures has been sent patient also have an ultrasound of the breasts shows successful aspiration of the hypoechoic area within the right breast moderate residual rest was reported not very clear, patient was started on vancomycin and Cipro IV infectious disease was consulted for further management of antibiotic therapy. Review of Systems Positive point has been mentioned in the HPI rest of the systems are negative Past Medical History Past Medical History: Cancer, Fibromyalgia, Hyperlipidemia, Hypertension, Osteoarthritis (OA) Additional Past Medical History / Comment(s): Sinus problems/seasonal allergies; Hiatal hernia; breast cancer at age 67; History of Any Multi-Drug Resistant Organisms: None Reported Past Surgical History: Back Surgery, Breast Surgery, Cholecystectomy, Hysterectomy Additional Past Surgical History / Comment(s): left breast lumpectomy 07/14/18 with radiation therapy; Past Anesthesia/Blood Transfusion Reactions: No Reported Reaction Past Psychological History: Anxiety Smoking Status: Former smoker Past Alcohol Use History: Rare Past Drug Use History: None Reported - Past Family History Father Family Medical History: Cancer Additional Family Medical History / Comment(s): throat Sister(s) Additional Family Medical History / Comment(s): CANCER RIB CAGE #2 SISTER LYMPHOMA Mother Family Medical History: Pulmonary Embolus Medications and Allergies Home Medications Medication Instructions Recorded Confirmed Type Aspirin EC [Ecotrin Low Dose] 81 mg PO DAILY 06/08/18 05/02/21 History Atorvastatin [Lipitor] 10 mg PO HS 06/08/18 05/02/21 History Cyclobenzaprine [Flexeril] 10 mg PO BID PRN 06/08/18 05/02/21 History DULoxetine HCL [Cymbalta] 60 mg PO QAM 06/08/18 05/02/21 History Quinapril HCl [Accupril] 10 mg PO HS 06/08/18 05/02/21 History Ibuprofen 1,000 mg PO HS 07/08/18 05/02/21 History amLODIPine [Norvasc] 10 mg PO HS 07/08/18 05/02/21 History Calcium Carbonate/Vitamin D3 1 each PO BID 07/27/20 05/02/21 History [Calcium 600 mg-Vit D3 10Mcg (400 Unit)] Esomeprazole Magnesium [NexIUM 20 mg PO HS 07/27/20 05/02/21 History 24Hr] Exemestane [Aromasin] 25 mg PO HS 07/27/20 05/02/21 History Inulin/Chromium Picolinate [Fiber 1 each PO QAM 07/27/20 05/02/21 History Gummies Chew] Loratadine 10 mg PO QAM 07/27/20 05/02/21 History Meclizine [Antivert] 25 mg PO QAM PRN 07/27/20 05/02/21 History Ascorbic Acid [Vitamin C] 1,000 mg PO DAILY 03/30/21 05/02/21 History Allergies Allergy/AdvReac Type Severity Reaction Status Date / Time Iodinated Contrast Media Allergy Rash/Hives Verified 05/02/21 09:24 flu shot Allergy Mild Rash/Hives Uncoded 05/02/21 09:24 Physical Exam Vitals: Vital Signs Temp Pulse Pulse Resp BP BP Pulse Ox 05/02/21 11:50 97.6 F 95 18 139/82 95 05/02/21 11:02 98.1 F 84 16 138/76 05/02/21 09:29 98.3 F 90 16 129/75 Intake and Output 05/01/21 05/02/21 05/02/21 22:59 06:59 14:59 Other: Weight 111.9 kg GENERAL DESCRIPTION: Elderly female lying in bed, no distress. No tachypnea or accessory muscle of respiration use. HEENT: Shows Pallor , no scleral icterus. Oral mucous membrane is dry. No pharyngeal erythema or thrush NECK: Trachea central, no thyromegaly. LUNGS: Unlabored breathing. Clear to auscultation anteriorly. No wheeze or crac kle. HEART: S1, S2, regular rate and rhythm. No loud murmur ABDOMEN: Soft, no tenderness , guarding or rigidity, no organomegaly EXTREMITIES: No edema of feet. SKIN: No rash, no masses palpable. NEUROLOGICAL: The patient is awake, alert, oriented x3, mood and affect normal. Results CBC & Chem 7: 05/02/21 13:10 05/02/21 13:10 Labs: Abnormal Lab Results - Last 24 Hours (Table) 05/02/21 Range/Units 13:10 Creatinine 1.20 H (0.52-1.04) mg/dL Glucose 151 H (74-99) mg/dL Total Bilirubin 0.1 L (0.2-1.3) mg/dL Total Protein 6.0 L (6.3-8.2) g/dL Assessment and Plan Assessment: 1-patient presented to hospital with right breast erythema swelling in [facility] who status post mammoplasty of the right breast with recent infected seroma status post drainage on the which did grew Pseudomonas aeruginosa that was sensitive to Cipro patient was treated over the body however she was last returned with antibiotic she was on and more likely has failed her outpatient wound VAC therapy status post redrainage procedure Plan: 1-vancomycin pharmacy to dose her with a target trough of 15 while watching her kidney function and Vanco trough closely. 2-discontinue Cipro and start the patient cefepime 2 g every 8 hour 3-Marked the area of the redness We will follow on clinical condition and cultures to further adjust medication if needed Thank you for this consultation we will follow the patient along with you Time with Patient: Greater than 30
[2021-05-03] MEDS: CEFEPIME 2 GM in SODIUM CHLORIDE 0.9% 100 ML IVPB SCH ×2 (03:27→15:27)
[2021-05-03] MEDS: LACTATED RINGERS 1,000 ML IV SCH ×3 (03:31→21:23)
[2021-05-03 05:58] LABS: Basophils # (A) 0.1 k/uL (0-0.2); Basophils % (A) 1 %; Eosinophils # (A) 0.2 k/uL (0-0.7); Eosinophils % (A) 4 %; HCT 36.2 % (34.0-46.0); HGB 12.2 gm/dL (11.4-16.0); Lymphocytes # (A) 1.8 k/uL (1.0-4.8); Lymphocytes % (A) 31 %; MCH 31.1 pg (25.0-35.0); MCHC 33.9 g/dL (31.0-37.0); MCV 91.8 fL (80.0-100.0); Mean Platelet Volume 6.7; Monocytes # (A) 0.4 k/uL (0-1.0); Monocytes % (A) 8 %; Neutrophils # (A) 3.1 k/uL (1.3-7.7); Neutrophils % (A) 54 %; Platelet Count 333 k/uL (150-450); RBC 3.94 m/uL (3.80-5.40); RDW 13.5 % (11.5-15.5); WBC 5.8 k/uL (3.8-10.6)
[2021-05-03 06:18] LABS: Calcium 8.8 mg/dL (8.4-10.2); Potassium 4.1 mmol/L (3.5-5.1)
[2021-05-03] MEDS: VANCOMYCIN 1,750 MG in SODIUM CHLORIDE 0.9% 500 ML 500 ML IVPB SCH (08:23)
[2021-05-03] MEDS: LORATADINE 10 MG TAB PO SCH (08:24)
[2021-05-03] MEDS: ASCORBIC ACID 500 MG TAB PO SCH (08:25)
[2021-05-03] MEDS: DULoxetine HCL 60 MG CAPSULE.DR PO SCH (08:25)
[2021-05-03] MEDS: ASPIRIN 81 MG PO SCH (08:25)
[2021-05-03] MEDS: ENOXAPARIN 40 MG/0.4 ML SYRINGE SQ SCH (08:26)
--- NOTE | 2021-05-03 08:45 | P.PN ---
Subjective Progress Note Date: 05/03/21 Principal diagnosis: Erythema right medial breast Yvette is a 70-year-old white female admitted for erythema of the right medial breast. She is status post right breast mammoplasty approximately 1 month ago. She has been started on vancomycin and cefepime. She has decrease in the erythema of the breast. Her white count was 5.8. She is afebrile. She is not complaining of any breast pain. Objective - Vital Signs Vital signs: Vital Signs Temp 98.3 F 05/03/21 01:09 Pulse 83 05/03/21 01:09 Resp 18 05/03/21 01:09 BP 114/79 05/03/21 01:09 Pulse Ox 95 05/03/21 01:09 Intake & Output 05/02/21 05/03/21 05/03/21 18:59 06:59 18:59 Intake Total 1040 1350 Balance 1040 1350 Weight 111.9 kg Intake: Intake, IV Titration 500 1350 Amount Cefepime 2 gm In Sodium 100 Chloride 0.9% 100 ml @ 25 mls/hr IVPB Q12H [facility] Rx# :[id number] Lactated Ringers 1,000 ml 1250 @ 125 mls/hr IV .Q8H [facility] Rx#:[id number] Vancomycin 1,750 mg In 500 Sodium Chloride 0.9% 500 ml 500 ml @ 167 mls/hr IVPB Q18H [facility] Rx#: [id number] Oral 540 Other: Voiding Method Toilet # Voids 1 4 - Exam BMI 36.4 - Constitutional General appearance: Present: cooperative - EENT Eyes: Present: EOMI ENT: Present: hearing grossly normal - Neck Neck: Present: normal ROM - Respiratory Respiratory: bilateral: CTA - Cardiovascular Rhythm: regular Heart sounds: normal: S1, S2 - Gastrointestinal General gastrointestinal: Present: soft - Integumentary Integumentary Comment(s): Decreased erythema right medial breast Some blistering noted at the area of previous erythema - Psychiatric Psychiatric: Present: A&O x's 3, appropriate affect, intact judgment & insight - Labs CBC & Chem 7: 05/03/21 05:45 05/03/21 05:45 Labs: Abnormal Lab Results - Last 24 Hours (Table) 05/02/21 05/03/21 Range/Units 13:10 05:45 Chloride 108 H (98-107) mmol/L Creatinine 1.20 H (0.52-1.04) mg/dL Glucose 151 H 109 H (74-99) mg/dL Total Bilirubin 0.1 L (0.2-1.3) mg/dL Total Protein 6.0 L (6.3-8.2) g/dL Assessment and Plan Assessment: Impression: 1. Patient approximately one month status post right breast mammoplasty/she has had intermittent erythema of the medial and inferior aspect of the breast treated with oral antibiotics as an outpatient. The erythema was more pronounced yesterday although the patient denied any pain at that site. 2. Ultrasound performed yesterday revealed 15 mL of fluid aspirated no residual seroma or abscess identified in the breast this is sent for culture 3. HTN 4. High cholesterol Plan: 1. IV antibiotic therapy 2. Infectious disease consult appreciated 3. will follow 4. medical care as per Dr. Monge
[2021-05-03] MEDS: DEXTROSE 5%-0.45% NACL 1,000 ML IV SCH (09:49)
--- NOTE | 2021-05-03 10:00 | US ---
EXAMINATION TYPE: US kidneys/renal and bladder DATE OF EXAM: 05/03/2021 COMPARISON: NONE CLINICAL HISTORY: Creatinine 1.2. EXAM MEASUREMENTS: Right Kidney: 10.6 x 5.0 x 5.6 cm Left Kidney: 10.7 x 5.2 x 5.5 cm Difficult and limited study due to patient body habitus Right Kidney: visualized portions wnl, limited by overlying bowel gas Left Kidney: visualized portions wnl, limited by overlying bowel gas Bladder: wnl Bilateral Jets seen: no No evidence of hydronephrosis or nephrolithiasis IMPRESSION: Limited exam demonstrates no definite acute process.
--- NOTE | 2021-05-03 14:53 | P.PN ---
Progress Note - Text Progress Note Date: 05/03/21 - Chief Complaint Right breast redness wound Consultation: This is a very pleasant 70-year-old patient, who had left breast cancer followed by lumpectomy and 4 lymph nodes removed in June 2018. This was followed by radiation treatment. Subsequent to that her breast size was DD on the right side and see on the left side. Patient had to cut in half to bras of the same size invading the same. Subsequently on march this year patient underwent reduction mammoplasty on the right side with Dr. Tamela merino. About 2 weeks ago patient developed infection and ultrasound was carried out and subsequently I&D was carried out. Fluid was obtained. Patient received a course of antibiotic. Did not improve. Was subsequently given Bactrim not with much help. On April 20 cultures did come back showing Pseudomonas aeruginosa, drainage of seroma. And patient's present ciprofloxacin. Patient continued to have redness and some local tenderness. Today a repeat ultrasound was done and about 50 mL of fluid was aspirated. Sinus appearing. Patient denies any fever and chills. Admitted for further IV antibiotics. That is redness of the lower half of the breast. An open wound at the 6 o'clock position. Patient did not tolerate arimidex because of hot flashes. She has been tolerating aromasin. Patient does not have any significant pain in the breast. Patient is accompanied by her grand daughter in the room. Admitted with right breast cellulitis, superficial wound. Patient on IV vancomycin and IV cefepime. May 03: Laying in bed. No cefepime pain. No fever no chills. Oral intake fair. Some improvement in the breast redness Review of systems: Was done for constitutional, cardiovascular, GI, pulmonary. relevant finding as above Active Medications Acetaminophen (Acetaminophen Tab 325 Mg Tab) 650 mg PO Q6HR PRN PRN Reason: Mild Pain or Fever > 100.5 Last Admin: 05/02/21 20:58 Dose: 650 mg Documented by: Al Hydroxide/Mg Hydroxide (Mag Hydrox/Al Hydrox/Simeth 30 Ml Cup) 15 ml PO Q6HR PRN PRN Reason: Indigestion Amlodipine Besylate (Amlodipine 10 Mg Tab) 10 mg PO HS [facility] Last Admin: 05/02/21 20:57 Dose: 10 mg Documented by: Ascorbic Acid (Ascorbic Acid 500 Mg Tab) 1,000 mg PO DAILY [facility] Last Admin: 05/03/21 08:25 Dose: 1,000 mg Documented by: Aspirin (Aspirin 81 Mg) 81 mg PO DAILY [facility] Last Admin: 05/03/21 08:25 Dose: 81 mg Documented by: Atorvastatin Calcium (Atorvastatin 10 Mg Tab) 10 mg PO [facility] Last Admin: 05/02/21 20:57 Dose: 10 mg Documented by: Calcium Carbonate/Glycine (Calcium Carbonate 500 Mg Chewable) 1,000 mg PO Q4HR PRN PRN Reason: Dyspepsia Cyclobenzaprine HCl (Cyclobenzaprine 10 Mg Tab) 10 mg PO BID PRN PRN Reason: MUSCLE PAIN Duloxetine HCl (Duloxetine Hcl 60 Mg Capsule.Dr) [facility] [place] Last Admin: 05/03/21 08:25 Dose: 60 mg Documented by: Enoxaparin Sodium (Enoxaparin 40 Mg/0.4 Ml Syringe) 40 mg SQ DAILY [facility] Last Admin: 05/03/21 08:26 Dose: 40 mg Documented by: Dextrose/Sodium Chloride (Dextrose 5%-1/2ns Iv Soln) 1,000 mls @ 20 mls/hr IV .Q24H [facility] Last Admin: 05/03/21 09:49 Dose: Not Given Documented by: Cefepime HCl 2 gm/ Sodium (Chloride) 100 mls @ 25 mls/hr IVPB Q12H [facility] Last Admin: 05/03/21 03:27 Dose: 25 mls/hr Documented by: Vancomycin HCl 1,750 mg/ (Sodium Chloride) 500 mls @ 167 mls/hr IVPB Q18H [facility] Last Admin: 05/03/21 08:23 Dose: 167 mls/hr Documented by: Lactated Ringer's (Lactated Ringers) 1,000 mls @ 125 mls/hr IV .Q8H [facility] Last Admin: 05/03/21 09:49 Dose: Not Given Documented by: Lactulose (Lactulose 20 Gm/30 Ml Cup) 20 gm PO DAILY PRN PRN Reason: Constipation Lisinopril (Lisinopril 10 Mg Tab) 10 mg PO [facility] Last Admin: 05/02/21 20:58 Dose: 10 mg Documented by: Loratadine (Loratadine 10 Mg Tab) [facility] [place] Last Admin: 05/03/21 08:24 Dose: 10 mg Documented by: Magnesium Hydroxide (Magnesium Hydroxide 2,400 Mg/10 Ml Cup) 2,400 mg PO DAILY PRN PRN Reason: Constipation Meclizine HCl (Meclizine 25 Mg Tab) 25 mg PO QAM PRN PRN Reason: VERTIGO Melatonin (Melatonin 3 Mg Tablet) 3 mg PO HS PRN PRN Reason: Insomnia Naloxone HCl (Naloxone 0.4 Mg/Ml 1 Ml Vial) 0.2 mg IV Q2M PRN PRN Reason: Opioid Reversal Patient's Own ( Exemestane [Aromasin ] 25 Mg Tablet) 25 mg PO HS [facility] Last Admin: 05/02/21 21:01 Dose: Not Given Documented by: Ondansetron HCl (Ondansetron 4 Mg/2 Ml Vial) 4 mg IVP Q8HR PRN PRN Reason: Nausea And Vomiting Past medical history to include: Fibromyalgia, hypertension, hyperlipidemia, osteoarthritis, hiatal hernia, left breast cancer with lumpectomy and 4 lymph nodes removed, followed by radiation treatment. Social history: . Alcohol occasionally. Patient smoked for about 40 years over half a pack a day stopped 15 years ago. Family history: Throat cancer Physical examination: VITAL SIGNS: 97.8, 74, 18, 138/83, 95% room air GENERAL: Laying in bed, comfortable EYES: Pupils equal. Conjunctiva normal. NECK: JVD not raised; masses not palpable. HEART: First and second heart sounds are normal; no edema. LUNGS: Respiratory rate normal; clear to auscultation. ABDOMEN: Soft, nontender, liver spleen not palpable, no masses palpable. PSYCH: Alert and oriented x3; mood and affect normal. MUSCULAR skeletal: Pres. of OA INVESTIGATIONS, reviewed in the clinical context: May 03: WBC 5.8 hemoglobin 12.2 potassium 4.1 creatinine 1.02 Reason ultrasound: Poor visualization due to gas patten. UA negative WBC 8.4 hemoglobin 11.6 platelets 335 potassium 3.7 creatinine 1.2 Wound culture from [April 20]: Pseudomonas aeruginosa Assessment and plan: -Acute cellulitis with secondary incision wound infection of the right breast, with previous cultures growing Pseudomonas aeruginosa. failed treatment with ciprofloxacin. Started IV cefepime and IV vancomycin. seroma was drained. Cultures are pending. Consultation to ID. -Obesity BMI 36.4 Weight loss measures and follow-up with PCP -Chronic fibromyalgia Pain medications as needed -Hyperlipidemia Lipitor 10 mg daily at bedtime -Essential hypertension Norvasc 10 mg daily at bedtime, Accupril 10 mg daily at bedtime -Primary osteoarthritis She was pain medications as needed -Acute kidney injury possibly ATN from medications: Improving Continue current antibiotics include IV vancomycin and cefepime. Cultures are pending. Creatinine is improving. Follow with ID. Thank you Dr. Mazariegos -
--- NOTE | 2021-05-03 17:08 | PN ---
PROGRESS NOTE DATE OF SERVICE: 05/03/2021 REASON FOR FOLLOWUP: Right breast cellulitis. INTERVAL HISTORY: The patient is afebrile. The patient denies any pain to the right breast area. She did have some swelling, redness, no drainage. No chest pain, shortness of breath or cough. No abdominal pain. No diarrhea. PHYSICAL EXAMINATION: Blood pressure 132/78 with a pulse of 82, temperature 98. She is 93% on room air. General description is an elderly female lying in bed in no distress. Respiratory system: Unlabored breathing. Clear to auscultation anteriorly. Heart S1, S2. Regular rate and rhythm. Abdomen soft, no tenderness. Right breast did have swelling and redness, which has not progressed from no drainage. LABS: Hemoglobin is 12.1, white count of 5.8. BUN of 13, creatinine 1.02. Cultures are currently pending. DIAGNOSTIC IMPRESSION AND PLAN: Patient with right breast abscess status post drainage. Cultures are pending. Patient is covered with vancomycin, cefepime, antibiotic will be adjusted based on the culture report. Continue supportive care. MMODL / IJN: [id number] /
[2021-05-03] MEDS ORDERED: ENOXAPARIN 40 MG/0.4 ML SYRINGE SQ SCH (18:15)
[2021-05-03] MEDS: ATORVASTATIN 10 MG TAB PO SCH (21:20)
[2021-05-03] MEDS: EXEMESTANE 25 MG PO SCH (21:20)
[2021-05-03] MEDS: amLODIPine 10 MG TAB PO SCH (21:20)
[2021-05-03] MEDS: lisinopriL 10 MG TAB PO SCH (21:20)
[2021-05-03] MEDS: ACETAMINOPHEN TAB 325 MG TAB PO PRN (21:26)
[2021-05-04] MEDS: VANCOMYCIN 1,750 MG in SODIUM CHLORIDE 0.9% 500 ML 500 ML IVPB SCH ×2 (01:20→20:16)
[2021-05-04] MEDS: LACTATED RINGERS 1,000 ML IV SCH ×3 (02:08→20:38)
[2021-05-04] MEDS: CEFEPIME 2 GM in SODIUM CHLORIDE 0.9% 100 ML IVPB SCH ×2 (04:25→15:52)
[2021-05-04 06:39] LABS: Calcium 9.1 mg/dL (8.4-10.2); Potassium 4.1 mmol/L (3.5-5.1)
[2021-05-04] MEDS: ASCORBIC ACID 500 MG TAB PO SCH (08:22)
[2021-05-04] MEDS: ENOXAPARIN 40 MG/0.4 ML SYRINGE SQ SCH (08:22)
[2021-05-04] MEDS: DULoxetine HCL 60 MG CAPSULE.DR PO SCH (08:22)
[2021-05-04] MEDS: ASPIRIN 81 MG PO SCH (08:22)
[2021-05-04] MEDS: LORATADINE 10 MG TAB PO SCH (08:22)
--- NOTE | 2021-05-04 15:06 | P.PN ---
Subjective Progress Note Date: 05/04/21 Principal diagnosis: Erythema right medial breast Yvette is a 70-year-old white female admitted for erythema of the right medial breast. She is status post right breast mammoplasty approximately 1 month ago. She has been started on vancomycin and cefepime. She has decrease in the erythema of the breast. Her white count was 5.8. She is afebrile. She is not complaining of any breast pain. She developed some blistering at the superior medial aspect of the erythema yesterday which has improved today. Cultures are still pending. Objective - Vital Signs Vital signs: Vital Signs Temp 98.1 F 05/04/21 08:30 Pulse 77 05/04/21 08:30 Resp 18 05/04/21 08:30 BP 149/78 05/04/21 08:30 Pulse Ox 95 05/04/21 08:30 Intake & Output 05/03/21 05/04/21 05/04/21 18:59 06:59 18:59 Intake Total 200 300 Balance 200 300 Intake: Oral 200 300 Other: Voiding Method Toilet Toilet # Voids 2 1 1 - Exam BMI 36.4 - Constitutional General appearance: Present: cooperative - EENT Eyes: Present: EOMI ENT: Present: hearing grossly normal - Respiratory Respiratory: bilateral: CTA - Cardiovascular Heart sounds: normal: S1, S2 - Integumentary Integumentary Comment(s): Decreased erythema medial and inferior breast, there is some blistering which occurred yesterday and seems to have improved in the superior medial aspect of the erythema the extent of erythema has not increased Patient is not complaining of any pain - Psychiatric Psychiatric: Present: A&O x's 3, appropriate affect, intact judgment & insight - Labs CBC & Chem 7: 05/03/21 05:45 05/04/21 06:08 Labs: Abnormal Lab Results - Last 24 Hours (Table) 05/04/21 Range/Units 06:08 Glucose 108 H (74-99) mg/dL Microbiology - Last 24 Hours (Table) 05/02/21 10:36 Gram Stain - Preliminary Aspirate Body Fluid Culture - Preliminary Assessment and Plan Assessment: Impression: 1. Patient approximately one month status post right breast mammoplasty/she has had intermittent erythema of the medial and inferior aspect of the breast treated with oral antibiotics as an outpatient. The erythema became more pronounced although the patient denied any pain at that site. 2. Ultrasound performed revealed 15 mL of fluid aspirated no residual seroma or abscess identified in the breast this is sent for culture; culture is pending 3. HTN 4. High cholesterol Plan: 1. IV antibiotic therapy 2. Infectious disease consult appreciated 3. will follow 4. medical care as per Dr. Monge Patient has discussed possibility of home IV antibiotic therapy. This will be at the discretion of medicine and infectious disease. At this time cultures are still pending.
--- NOTE | 2021-05-04 16:50 | PN ---
PROGRESS NOTE DATE OF SERVICE: 05/04/2021 REASON FOR FOLLOWUP: Right breast cellulitis. INTERVAL HISTORY: Patient is currently afebrile. The patient is breathing comfortably. The patient overall pain and discomfort to the right breast area. No vomiting or diarrhea. PHYSICAL EXAMINATION: Blood pressure 149/72 with a pulse of 77, temperature 98.1. She is 95% on room air. General description is an elderly female lying in bed in no distress. Examination of right breast swelling and redness minimally decreased. No drainage was noticed. Abdomen: Soft, no tenderness. LAB: 81.04. Cultures currently pending. DIAGNOSTIC IMPRESSION AND PLAN: Patient with right breast cellulitis. The cultures are still pending. The patient is currently covered with cefepime and Vanco to continue. Discharge antibiotics based on culture report. Continue supportive care. MMODL / IJN: [id number] /
--- NOTE | 2021-05-04 17:48 | P.PN ---
Progress Note - Text Progress Note Date: 05/04/21 - Chief Complaint Right breast redness wound Consultation: This is a very pleasant 70-year-old patient, who had left breast cancer followed by lumpectomy and 4 lymph nodes removed in June 2018. This was followed by radiation treatment. Subsequent to that her breast size was DD on the right side and see on the left side. Patient had to cut in half to bras of the same size invading the same. Subsequently on march this year patient underwent reduction mammoplasty on the right side with Dr. Tamela merino. About 2 weeks ago patient developed infection and ultrasound was carried out and subsequently I&D was carried out. Fluid was obtained. Patient received a course of antibiotic. Did not improve. Was subsequently given Bactrim not with much help. On April 20 cultures did come back showing Pseudomonas aeruginosa, drainage of seroma. And patient's present ciprofloxacin. Patient continued to have redness and some local tenderness. Today a repeat ultrasound was done and about 50 mL of fluid was aspirated. Sinus appearing. Patient denies any fever and chills. Admitted for further IV antibiotics. That is redness of the lower half of the breast. An open wound at the 6 o'clock position. Patient did not tolerate arimidex because of hot flashes. She has been tolerating aromasin. Patient does not have any significant pain in the breast. Patient is accompanied by her grand daughter in the room. Admitted with right breast cellulitis, superficial wound. Patient on IV vancomycin and IV cefepime. May 03: Laying in bed. No cefepime pain. No fever no chills. Oral intake fair. Some improvement in the breast redness May 04: Nurse, present with me. Feeling better. Decreased redness of the breast. Wound cultures are still pending. Review of systems: Was done for constitutional, cardiovascular, GI, pulmonary. relevant finding as above Active Medications Acetaminophen (Acetaminophen Tab 325 Mg Tab) 650 mg PO Q6HR PRN PRN Reason: Mild Pain or Fever > 100.5 Last Admin: 05/03/21 21:26 Dose: 650 mg Documented by: Al Hydroxide/Mg Hydroxide (Mag Hydrox/Al Hydrox/Simeth 30 Ml Cup) 15 ml PO Q6HR PRN PRN Reason: Indigestion Amlodipine Besylate (Amlodipine 10 Mg Tab) 10 mg PO HS [facility]IL Last Admin: 05/03/21 21:20 Dose: 10 mg Documented by: Ascorbic Acid (Ascorbic Acid 500 Mg Tab) 1,000 mg PO DAILY [facility] Last Admin: 05/04/21 08:22 Dose: 1,000 mg Documented by: Aspirin (Aspirin 81 Mg) 81 mg PO DAILY [facility] Last Admin: 05/04/21 08:22 Dose: 81 mg Documented by: Atorvastatin Calcium (Atorvastatin 10 Mg Tab) 10 mg PO [facility] Last Admin: 05/03/21 21:20 Dose: 10 mg Documented by: Calcium Carbonate/Glycine (Calcium Carbonate 500 Mg Chewable) 1,000 mg PO Q4HR PRN PRN Reason: Dyspepsia Cyclobenzaprine HCl (Cyclobenzaprine 10 Mg Tab) 10 mg PO BID PRN PRN Reason: MUSCLE PAIN Duloxetine HCl (Duloxetine Hcl 60 Mg Capsule.Dr) 60 mg PO QAM [facility] Last Admin: 05/04/21 08:22 Dose: 60 mg Documented by: Enoxaparin Sodium (Enoxaparin 40 Mg/0.4 Ml Syringe) 40 mg SQ DAILY [facility] Last Admin: 05/04/21 08:22 Dose: 40 mg Documented by: Dextrose/Sodium Chloride (Dextrose 5%-1/2ns Iv Soln) 1,000 mls @ 20 mls/hr IV .Q24H [facility] Last Admin: 05/03/21 09:49 Dose: Not Given Documented by: Cefepime HCl 2 gm/ Sodium (Chloride) 100 mls @ 25 mls/hr IVPB Q12H [facility] Last Admin: 05/04/21 15:52 Dose: 25 mls/hr Documented by: Vancomycin HCl 1,750 mg/ (Sodium Chloride) 500 mls @ 167 mls/hr IVPB Q18H [facility] Last Admin: 05/04/21 01:20 Dose: 167 mls/hr Documented by: Lactated Ringer's (Lactated Ringers) 1,000 mls @ 125 mls/hr IV .Q8H [facility] Last Admin: 05/04/21 02:08 Dose: Not Given Documented by: Lactulose (Lactulose 20 Gm/30 Ml Cup) 20 gm PO DAILY PRN PRN Reason: Constipation Lisinopril (Lisinopril 10 Mg Tab) 10 mg PO [facility] Last Admin: 05/03/21 21:20 Dose: 10 mg Documented by: Loratadine (Loratadine 10 Mg Tab) 10 mg PO QAM [facility] Last Admin: 05/04/21 08:22 Dose: 10 mg Documented by: Magnesium Hydroxide (Magnesium Hydroxide 2,400 Mg/10 Ml Cup) 2,400 mg PO DAILY PRN PRN Reason: Constipation Meclizine HCl (Meclizine 25 Mg Tab) 25 mg PO QAM PRN PRN Reason: VERTIGO Melatonin (Melatonin 3 Mg Tablet) 3 mg PO HS PRN PRN Reason: Insomnia Miscellaneous Information (Vancomycin Trough Due 1 Each Misc) 0 each MISCELLANE DIRECTED ONE Stop: 05/04/21 19:01 Naloxone HCl (Naloxone 0.4 Mg/Ml 1 Ml Vial) 0.2 mg IV Q2M PRN PRN Reason: Opioid Reversal Patient's Own ( Exemestane [Aromasin ] 25 Mg Tablet) 25 mg PO HS [facility] Last Admin: 05/03/21 21:20 Dose: 25 mg Documented by: Ondansetron HCl (Ondansetron 4 Mg/2 Ml Vial) 4 mg IVP Q8HR PRN PRN Reason: Nausea And Vomiting Past medical history to include: Fibromyalgia, hypertension, hyperlipidemia, osteoarthritis, hiatal hernia, left breast cancer with lumpectomy and 4 lymph nodes removed, followed by radiation treatment. Social history: . Alcohol occasionally. Patient smoked for about 40 years over half a pack a day stopped 15 years ago. Family history: Throat cancer Physical examination: VITAL SIGNS: Afebrile, 77, 18, 149/78, 95% room air GENERAL: Laying in bed, comfortable EYES: Pupils equal. Conjunctiva normal. NECK: JVD not raised; masses not palpable. HEART: First and second heart sounds are normal; no edema. LUNGS: Respiratory rate normal; clear to auscultation. ABDOMEN: Soft, nontender, liver spleen not palpable, no masses palpable. PSYCH: Alert and oriented x3; mood and affect normal. MUSCULAR skeletal: Pres. of OA BREAST exam: [In the presence of nurse] decreased redness. Area of induration around the areola. No obvious fluctuation INVESTIGATIONS, reviewed in the clinical context: May 04: Potassium 4.1 crit 0.04 May 03: WBC 5.8 hemoglobin 12.2 potassium 4.1 creatinine 1.02 Reason ultrasound: Poor visualization due to gas patten. UA negative WBC 8.4 hemoglobin 11.6 platelets 335 potassium 3.7 creatinine 1.2 Wound culture from [April 20]: Pseudomonas aeruginosa Assessment and plan: -Acute cellulitis with secondary incision wound infection of the right breast, with previous cultures growing Pseudomonas aeruginosa. failed treatment with ciprofloxacin. Started IV cefepime and IV vancomycin. seroma was drained. Clinically improving. Follow tidy. Cultures pending. -Obesity BMI 36.4 Weight loss measures and follow-up with PCP -Chronic fibromyalgia Pain medications as needed -Hyperlipidemia Lipitor 10 mg daily at bedtime -Essential hypertension Norvasc 10 mg daily at bedtime, Accupril 10 mg daily at bedtime -Primary osteoarthritis She was pain medications as needed -Acute kidney injury possibly ATN from medications: Improving Continue current antibiotics include IV vancomycin and cefepime. Cultures are pending. Antibiotics will be finalized once cultures are done. This was checked with lab. Discussed with the patient. -
[2021-05-04] MEDS ORDERED: VANCOMYCIN TROUGH DUE 1 EACH MISC MISCELLANE ONE (19:00)
[2021-05-04] MEDS: DEXTROSE 5%-0.45% NACL 1,000 ML IV SCH (19:30)
[2021-05-04] MEDS: EXEMESTANE 25 MG PO SCH (20:16)
[2021-05-04] MEDS: ATORVASTATIN 10 MG TAB PO SCH (20:16)
[2021-05-04] MEDS: amLODIPine 10 MG TAB PO SCH (20:16)
[2021-05-04] MEDS: lisinopriL 10 MG TAB PO SCH (20:16)
[2021-05-04] MEDS: ACETAMINOPHEN TAB 325 MG TAB PO PRN (22:06)
[2021-05-05] MEDS: CEFEPIME 2 GM in SODIUM CHLORIDE 0.9% 100 ML IVPB SCH ×2 (03:24→16:34)
[2021-05-05] MEDS: LACTATED RINGERS 1,000 ML IV SCH ×2 (03:24→19:21)
[2021-05-05 05:51] LABS: Basophils % (A) 1 %; Eosinophils # (A) 0.3 k/uL (0-0.7); Eosinophils % (A) 5 %; Lymphocytes # (A) 1.7 k/uL (1.0-4.8); Lymphocytes % (A) 30 %; MCH 30.8 pg (25.0-35.0); MCHC 33.3 g/dL (31.0-37.0); MCV 92.4 fL (80.0-100.0); Mean Platelet Volume 6.7; Monocytes # (A) 0.4 k/uL (0-1.0); Monocytes % (A) 7 %; Neutrophils # (A) 3.2 k/uL (1.3-7.7); Neutrophils % (A) 56 %; Platelet Count 283 k/uL (150-450); RBC 3.57 m/uL (3.80-5.40); RDW 13.3 % (11.5-15.5); WBC 5.8 k/uL (3.8-10.6)
[2021-05-05 06:06] LABS: African American GFR (CKD) >90 (>60 ml/min/1.73 sqM); Anion Gap 7 mmol/L; Blood Urea Nitrogen 14 mg/dL (7-17); Calcium 8.3 mg/dL (8.4-10.2); Carbon Dioxide 21 mmol/L (22-30); Chloride 110 mmol/L (98-107); Glucose 84 mg/dL (74-99); Non-African American GFR(CKD) 83 (>60 ml/min/1.73 sqM); Potassium 3.8 mmol/L (3.5-5.1); Sodium 138 mmol/L (137-145)
[2021-05-05] MEDS: ASCORBIC ACID 500 MG TAB PO SCH (08:22)
[2021-05-05] MEDS: ASPIRIN 81 MG PO SCH (08:22)
[2021-05-05] MEDS: DULoxetine HCL 60 MG CAPSULE.DR PO SCH (08:22)
[2021-05-05] MEDS: ENOXAPARIN 40 MG/0.4 ML SYRINGE SQ SCH (08:23)
[2021-05-05] MEDS: LORATADINE 10 MG TAB PO SCH (08:23)
[2021-05-05] MEDS ORDERED: LACTATED RINGERS 1,000 ML IV SCH (12:30)
[2021-05-05] MEDS: VANCOMYCIN 1,750 MG in SODIUM CHLORIDE 0.9% 500 ML 500 ML IVPB SCH (13:53)
--- NOTE | 2021-05-05 15:30 | PN ---
PROGRESS NOTE DATE OF SERVICE: 05/05/2021 REASON FOR FOLLOWUP: Right breast abscess and cellulitis. INTERVAL HISTORY: Patient is afebrile. She is feeling better. Breathing comfortably. No chest pain or cough. No pain to the right breast area or any diarrhea. PHYSICAL EXAMINATION: Blood pressure 134/79, pulse of 89, temperature 98.2. She is 92% on room air. General description is an elderly female up in the bed in no distress. Examination right breast: Overall swelling and redness have slightly decreased. No drainage was noticed. LABS: Culture still pending. White count normal at 8.7. DIAGNOSTIC IMPRESSION AND PLAN: Patient with right breast cellulitis and concern for an abscess status post drainage. Culture remains negative. Patient is covered with vancomycin. Will wait for the culture to finalize to determine her discharge antibiotics. Federico the area of the redness and continue supportive care. MMODL / IJN: [id number] /
--- NOTE | 2021-05-05 17:25 | P.PN ---
Progress Note - Text Progress Note Date: 05/05/21 - Chief Complaint Right breast redness wound Consultation: This is a very pleasant 70-year-old patient, who had left breast cancer followed by lumpectomy and 4 lymph nodes removed in June 2018. This was followed by radiation treatment. Subsequent to that her breast size was DD on the right side and see on the left side. Patient had to cut in half to bras of the same size invading the same. Subsequently on march this year patient underwent reduction mammoplasty on the right side with Dr. Tamela merino. About 2 weeks ago patient developed infection and ultrasound was carried out and subsequently I&D was carried out. Fluid was obtained. Patient received a course of antibiotic. Did not improve. Was subsequently given Bactrim not with much help. On April 20 cultures did come back showing Pseudomonas aeruginosa, drainage of seroma. And patient's present ciprofloxacin. Patient continued to have redness and some local tenderness. Today a repeat ultrasound was done and about 50 mL of fluid was aspirated. Sinus appearing. Patient denies any fever and chills. Admitted for further IV antibiotics. That is redness of the lower half of the breast. An open wound at the 6 o'clock position. Patient did not tolerate arimidex because of hot flashes. She has been tolerating aromasin. Patient does not have any significant pain in the breast. Patient is accompanied by her grand daughter in the room. Admitted with right breast cellulitis, superficial wound. Patient on IV vancomycin and IV cefepime. May 03: Laying in bed. No cefepime pain. No fever no chills. Oral intake fair. Some improvement in the breast redness May 04: Nurse, present with me. Feeling better. Decreased redness of the breast. Wound cultures are still pending. May 05: Pain and redness all improving. Oral intake good. Cultures are still pending. Patient comfortable. Review of systems: Was done for constitutional, cardiovascular, GI, pulmonary. relevant finding as above Active Medications Acetaminophen (Acetaminophen Tab 325 Mg Tab) 650 mg PO Q6HR PRN PRN Reason: Mild Pain or Fever > 100.5 Last Admin: 05/04/21 22:06 Dose: 650 mg Documented by: Al Hydroxide/Mg Hydroxide (Mag Hydrox/Al Hydrox/Simeth 30 Ml Cup) 15 ml PO Q6HR PRN PRN Reason: Indigestion Amlodipine Besylate (Amlodipine 10 Mg Tab) 10 mg PO [facility] Last Admin: 05/04/21 20:16 Dose: 10 mg Documented by: Ascorbic Acid (Ascorbic Acid 500 Mg Tab) 1,000 mg PO DAILY [facility] Last Admin: 05/05/21 08:22 Dose: 1,000 mg Documented by: Aspirin (Aspirin 81 Mg) 81 mg PO DAILY [facility] Last Admin: 05/05/21 08:22 Dose: 81 mg Documented by: Atorvastatin Calcium (Atorvastatin 10 Mg Tab) 10 mg PO [facility] Last Admin: 05/04/21 20:16 Dose: 10 mg Documented by: Calcium Carbonate/Glycine (Calcium Carbonate 500 Mg Chewable) 1,000 mg PO Q4HR PRN PRN Reason: Dyspepsia Cyclobenzaprine HCl (Cyclobenzaprine 10 Mg Tab) 10 mg PO BID PRN PRN Reason: MUSCLE PAIN Duloxetine HCl (Duloxetine Hcl 60 Mg Capsule.Dr) 60 mg PO [facility] Last Admin: 05/05/21 08:22 Dose: 60 mg Documented by: Enoxaparin Sodium (Enoxaparin 40 Mg/0.4 Ml Syringe) 40 mg SQ DAILY [facility] Last Admin: 05/05/21 08:23 Dose: 40 mg Documented by: Cefepime HCl 2 gm/ Sodium (Chloride) 100 mls @ 25 mls/hr IVPB Q12H [facility] Last Admin: 05/05/21 16:34 Dose: 25 mls/hr Documented by: Vancomycin HCl 1,750 mg/ (Sodium Chloride) 500 mls @ 167 mls/hr IVPB Q18H [facility] Last Admin: 05/05/21 13:53 Dose: 167 mls/hr Documented by: Lactated Ringer's (Lactated Ringers) 1,000 mls @ 20 mls/hr IV .Q24H [facility] Last Admin: 05/05/21 13:52 Dose: 20 mls/hr Documented by: Lactulose (Lactulose 20 Gm/30 Ml Cup) 20 gm PO DAILY PRN PRN Reason: Constipation Lisinopril (Lisinopril 10 Mg Tab) 10 mg PO [facility] Last Admin: 05/04/21 20:16 Dose: 10 mg Documented by: Loratadine (Loratadine 10 Mg Tab) [facility] Last Admin: 05/05/21 08:23 Dose: 10 mg Documented by: Magnesium Hydroxide (Magnesium Hydroxide 2,400 Mg/10 Ml Cup) 2,400 mg PO DAILY PRN PRN Reason: Constipation Meclizine HCl (Meclizine 25 Mg Tab) 25 mg PO QAM PRN PRN Reason: VERTIGO Melatonin (Melatonin 3 Mg Tablet) 3 mg PO HS PRN PRN Reason: Insomnia Miscellaneous Information (Vancomycin Trough Due 1 Each Misc) 0 each MISCELLANE DIRECTED ONE Stop: 05/06/21 07:01 Naloxone HCl (Naloxone 0.4 Mg/Ml 1 Ml Vial) 0.2 mg IV Q2M PRN PRN Reason: Opioid Reversal Patient's Own ( Exemestane [Aromasin ] 25 Mg Tablet) 25 mg PO HS [facility] Last Admin: 05/04/21 20:16 Dose: 25 mg Documented by: Ondansetron HCl (Ondansetron 4 Mg/2 Ml Vial) 4 mg IVP Q8HR PRN PRN Reason: Nausea And Vomiting Past medical history to include: Fibromyalgia, hypertension, hyperlipidemia, osteoarthritis, hiatal hernia, left breast cancer with lumpectomy and 4 lymph nodes removed, followed by radiation treatment. Social history: . Alcohol occasionally. Patient smoked for about 40 years over half a pack a day stopped 15 years ago. Family history: Throat cancer Physical examination: VITAL SIGNS: 37.5, 96, 20, 165/87, 96% room air GENERAL: Up in a chair, comfortable EYES: Pupils equal. Conjunctiva normal. NECK: JVD not raised; masses not palpable. HEART: First and second heart sounds are normal; no edema. LUNGS: Respiratory rate normal; clear to auscultation. ABDOMEN: Soft, nontender, liver spleen not palpable, no masses palpable. PSYCH: Alert and oriented x3; mood and affect normal. MUSCULAR skeletal: Pres. of OA BREAST exam: [In the presence of nurse] decreased redness. Area of induration around the areola. No obvious fluctuation INVESTIGATIONS, reviewed in the clinical context: May 05: WBC 5.8 hemoglobin 11 potassium 3.8 creatinine 0.73 May 04: Potassium 4.1 crit 0.04 May 03: WBC 5.8 hemoglobin 12.2 potassium 4.1 creatinine 1.02 Reason ultrasound: Poor visualization due to gas patten. UA negative WBC 8.4 hemoglobin 11.6 platelets 335 potassium 3.7 creatinine 1.2 Wound culture from [April 20]: Pseudomonas aeruginosa Assessment and plan: -Acute cellulitis with secondary incision wound infection of the right breast, with previous cultures growing Pseudomonas aeruginosa. failed treatment with ciprofloxacin. Started IV cefepime and IV vancomycin. seroma was drained. Clinically improving. Follow tidy. Cultures pending. -Obesity BMI 36.4 Weight loss measures and follow-up with PCP -Chronic fibromyalgia Pain medications as needed -Hyperlipidemia Lipitor 10 mg daily at bedtime -Essential hypertension Norvasc 10 mg daily at bedtime, Accupril 10 mg daily at bedtime -Primary osteoarthritis She was pain medications as needed -Acute kidney injury possibly ATN from medications: Improving Continue current antibiotics include IV vancomycin and cefepime. Care was discussed with the patient. We are both disappointed with the fact that cultures are still pending. -
[2021-05-05] MEDS: DEXTROSE 5%-0.45% NACL 1,000 ML IV SCH (19:21)
[2021-05-05 19:24] VITALS: RESP 18
[2021-05-05] MEDS: lisinopriL 10 MG TAB PO SCH (20:33)
[2021-05-05] MEDS: ATORVASTATIN 10 MG TAB PO SCH (20:33)
[2021-05-05] MEDS: EXEMESTANE 25 MG PO SCH (20:33)
[2021-05-05] MEDS: amLODIPine 10 MG TAB PO SCH (20:33)
[2021-05-05] MEDS: ACETAMINOPHEN TAB 325 MG TAB PO PRN (21:28)
[2021-05-06] MEDS: CEFEPIME 2 GM in SODIUM CHLORIDE 0.9% 100 ML IVPB SCH (02:55)
[2021-05-06] MEDS ORDERED: VANCOMYCIN TROUGH DUE 1 EACH MISC MISCELLANE ONE (07:00)
[2021-05-06] MEDS: VANCOMYCIN 1,750 MG in SODIUM CHLORIDE 0.9% 500 ML 500 ML IVPB SCH (08:56)
[2021-05-06] MEDS: ENOXAPARIN 40 MG/0.4 ML SYRINGE SQ SCH (08:59)
[2021-05-06] MEDS: ASCORBIC ACID 500 MG TAB PO SCH (09:00)
[2021-05-06] MEDS: LORATADINE 10 MG TAB PO SCH (09:00)
[2021-05-06] MEDS: DULoxetine HCL 60 MG CAPSULE.DR PO SCH (09:00)
[2021-05-06] MEDS: ASPIRIN 81 MG PO SCH (09:00)
[2021-05-06 09:02] VITALS: BP 125/82; PULSE 69; TEMP 97.5
[2021-05-06 09:19] LABS: Calcium 9.3 mg/dL (8.4-10.2); Potassium 3.9 mmol/L (3.5-5.1)
--- NOTE | 2021-05-06 16:48 | PN ---
PROGRESS NOTE DATE OF SERVICE: 05/06/2021. REASON FOR FOLLOWUP: Right breast cellulitis. INTERVAL HISTORY: The patient is afebrile. The patient is breathing comfortably. Denies having any pain to the right breast area. Redness has slightly decreased, small blister with minimal serous drainage. No chest pain, shortness of breath or cough. No abdominal pain. No diarrhea. PHYSICAL EXAMINATION: Blood pressure 155/82 with a pulse of 69, temperature 97.5. She is 97% on room air. General description is an elderly female up in the bed in no distress. Respiratory system: Unlabored breathing. Clear to auscultation anteriorly. Heart S1, S2. Regular rate and rhythm. Abdomen: Soft. No tenderness. Right breast swelling, redness, minimally decreased. No drainage. LAB: Cultures so far pending. DIAGNOSTIC IMPRESSION AND PLAN: Patient with right breast cellulitis. Recent culture during outpatient setting were positive for Pseudomonas, failing oral Cipro. Did have minimal improvement. Repeat ultrasound did not show any fluid collection. Patient insisting on going home though culture not finalized. We will give a prescription for oral Keflex. Advised if any worsening of swelling, redness or any fever to left us know right away. MMODL / IJN: [id number] /
--- NOTE | 2021-05-06 17:30 | P.DS ---
Providers Date of admission: 05/02/21 11:46 Expected date of discharge: 05/06/21 Attending physician: Carson Monge Consults: 05/02/21 11:28 Consult Physician Routine Consulting Provider: Shara Orosco Consult Reason/Comments: bresat cellulitis Do you want consulting provider notified?: Yes 05/02/21 12:52 Consult Physician Routine Consulting Provider: Nola Sanchez Consult Reason/Comments: breast cellulitis Do you want consulting provider notified?: Already Contacted Primary care physician: Stated None Hospital Course: - Chief Complaint Right breast redness wound Consultation: This is a very pleasant 70-year-old patient, who had left breast cancer followed by lumpectomy and 4 lymph nodes removed in June 2018. This was followed by radiation treatment. Subsequent to that her breast size was DD on the right side and see on the left side. Patient had to cut in half to bras of the same size invading the same. Subsequently on march this year patient underwent reduction mammoplasty on the right side with Dr. Tamela banerjee. About 2 weeks ago patient developed infection and ultrasound was carried out and subsequently I&D was carried out. Fluid was obtained. Patient received a course of antibiotic. Did not improve. Was subsequently given Bactrim not with much help. On April 20 cultures did come back showing Pseudomonas aeruginosa, drainage of seroma. And patient's present ciprofloxacin. Patient continued to have redness and some local tenderness. Today a repeat ultrasound was done and about 50 mL of fluid was aspirated. Sinus appearing. Patient denies any fever and chills. Admitted for further IV antibiotics. That is redness of the lower half of the breast. An open wound at the 6 o'clock position. Patient did not tolerate arimidex because of hot flashes. She has been tolerating aromasin. Patient does not have any significant pain in the breast. Patient is accompanied by her grand daughter in the room. Admitted with right breast cellulitis, superficial wound. Patient on IV vancomycin and IV cefepime. May 03: Laying in bed. No cefepime pain. No fever no chills. Oral intake fair. Some improvement in the breast redness May 04: Nurse, present with me. Feeling better. Decreased redness of the breast. Wound cultures are still pending. May 05: Pain and redness all improving. Oral intake good. Cultures are still pending. Patient comfortable. May 06: Feeling much better. Culture results are still pending. Patient was seen by Dr. Orosco from ID. Placed on Keflex. She'll follow up with Dr. Rodriguez and Dr. Rapp in the office. Care was discussed. Questions answered. Discussion and discharge planning more than 35 minutes Consultation: Dr. Tamela Banerjee from surgery Dr. Orosco from ID Past medical history to include: Fibromyalgia, hypertension, hyperlipidemia, osteoarthritis, hiatal hernia, left breast cancer with lumpectomy and 4 lymph nodes removed, followed by radiation treatment. Social history: . Alcohol occasionally. Patient smoked for about 40 years over half a pack a day stopped 15 years ago. Family history: Throat cancer Physical examination: VITAL SIGNS: 97.5, 69, 18, 125/82, 96% room air GENERAL: Up in a chair, comfortable EYES: Pupils equal. Conjunctiva normal. NECK: JVD not raised; masses not palpable. HEART: First and second heart sounds are normal; no edema. LUNGS: Respiratory rate normal; clear to auscultation. ABDOMEN: Soft, nontender, liver spleen not palpable, no masses palpable. PSYCH: Alert and oriented x3; mood and affect normal. MUSCULAR skeletal: Pres. of OA INVESTIGATIONS, reviewed in the clinical context: May 05: WBC 5.8 hemoglobin 11 potassium 3.8 creatinine 0.73 May 04: Potassium 4.1 crit 0.04 May 03: WBC 5.8 hemoglobin 12.2 potassium 4.1 creatinine 1.02 Reason ultrasound: Poor visualization due to gas patten. UA negative WBC 8.4 hemoglobin 11.6 platelets 335 potassium 3.7 creatinine 1.2 Wound culture from [April 20]: Pseudomonas aeruginosa Assessment and plan: -Acute cellulitis with secondary incision wound infection of the right breast, with previous cultures growing Pseudomonas aeruginosa. failed treatment with ciprofloxacin. Started IV cefepime and IV vancomycin. seroma was drained. Clinically improving. Cultures pending. Being discharged on Keflex per ID -Obesity BMI 36.4 Weight loss measures and follow-up with PCP -Chronic fibromyalgia Pain medications as needed -Hyperlipidemia Lipitor 10 mg daily at bedtime -Essential hypertension Norvasc 10 mg daily at bedtime, Accupril 10 mg daily at bedtime -Primary osteoarthritis pain medications as needed -Acute kidney injury possibly ATN from medications: Improved Disposition: Home - Plan - Discharge Summary Discharge Rx Participant: Yes New Discharge Prescriptions: New Cephalexin [Keflex] 500 mg PO Q6HR 10 Days #40 cap Continue Quinapril HCl [Accupril] 10 mg PO HS Cyclobenzaprine [Flexeril] 10 mg PO BID PRN PRN Reason: Pain Atorvastatin [Lipitor] 10 mg PO HS DULoxetine HCL [Cymbalta] 60 mg PO QAM Aspirin EC [Ecotrin Low Dose] 81 mg PO DAILY amLODIPine [Norvasc] 10 mg PO HS Inulin/Chromium Picolinate [Fiber Gummies Chew] 1 each PO QAM Exemestane [Aromasin] 25 mg PO HS Calcium Carbonate/Vitamin D3 [Calcium 600 mg-Vit D3 10 mcg (400 Unit)] 1 each PO BID Loratadine 10 mg PO QAM Esomeprazole Magnesium [NexIUM 24Hr] 20 mg PO HS Ascorbic Acid [Vitamin C] 1,000 mg PO DAILY Discontinued Ibuprofen 1,000 mg PO HS Meclizine [Antivert] 25 mg PO QAM PRN PRN Reason: VERTIGO Discharge Medication List Aspirin EC [Ecotrin Low Dose] 81 mg PO DAILY 06/08/18 [History] Atorvastatin [Lipitor] 10 mg PO HS 06/08/18 [History] Cyclobenzaprine [Flexeril] 10 mg PO BID PRN 06/08/18 [History] DULoxetine HCL [Cymbalta] 60 mg PO QAM 06/08/18 [History] Quinapril HCl [Accupril] 10 mg PO HS 06/08/18 [History] amLODIPine [Norvasc] 10 mg PO HS 07/08/18 [History] Calcium Carbonate/Vitamin D3 [Calcium 600 mg-Vit D3 10 mcg (400 Unit)] 1 each PO BID 07/27/20 [History] Esomeprazole Magnesium [NexIUM 24Hr] 20 mg PO HS 07/27/20 [History] Exemestane [Aromasin] 25 mg PO HS 07/27/20 [History] Inulin/Chromium Picolinate [Fiber Gummies Chew] 1 each PO QAM 07/27/20 [History] Loratadine 10 mg PO QAM 07/27/20 [History] Ascorbic Acid [Vitamin C] 1,000 mg PO DAILY 03/30/21 [History] Cephalexin [Keflex] 500 mg PO Q6HR 10 Days #40 cap 05/06/21 [Rx] Follow up Appointment(s)/Referral(s): Nola Sanchez MD [STAFF PHYSICIAN] - 1 Week Federico Hastings MD [REFERRING] - 1 Week Shara Orosco MD [STAFF PHYSICIAN] - 2 Weeks Activity/Diet/Wound Care/Special Instructions: regular diet, drink fluids. Continue antibiotics as directed. Last recevied cefepime at 0300 monitor Rt breast area and drainage. call Dr Brennan Banerjee for any increased redness, purulent drainage, fever, chills. pain or worsening of the symptoms that brought you here or any concerns. Follow up as directed. good hand washing No tub baths or soaks. may shower. Call Dr Brennan Banerjee Friday regarding additional cipro script for home. Per Dr Orosco pt is to finish the cipro she has at home as well as keflex Discharge Disposition: HOME SELF-CARE
== END 2021-05-06 14:00 | disposition home or self-care (01) ==
LOC: RADUSWWP 09:12 → INTOOBSV 11:46 → 6PED 11:46 → UNDODISIN 05-06 14:00
PROVIDERS: ADMIT Hospitalist; ATTEND Hospitalist
DX: L76.34 Postprocedural seroma of skin and subcutaneous tissue following other procedure (principal); N17.0 Acute kidney failure with tubular necrosis; N61.0 Mastitis without abscess; N95.1 Menopausal and female climacteric states; I83.91 Asymptomatic varicose veins of right lower extremity; R61 Generalized hyperhidrosis; E78.5 Hyperlipidemia, unspecified; I10 Essential (primary) hypertension; E78.00 Pure hypercholesterolemia, unspecified; F41.9 Anxiety disorder, unspecified; E66.9 Obesity, unspecified; N61.1 Abscess of the breast and nipple; M79.7 Fibromyalgia; M19.90 Unspecified osteoarthritis, unspecified site; Z85.3 Personal history of malignant neoplasm of breast; J30.2 Other seasonal allergic rhinitis; K44.9 Diaphragmatic hernia without obstruction or gangrene; Z87.891 Personal history of nicotine dependence; Z79.82 Long term (current) use of aspirin; Z79.899 Other long term (current) drug therapy; Z68.36 Body mass index [BMI] 36.0-36.9, adult; Z92.3 Personal history of irradiation; Z87.81 Personal history of (healed) traumatic fracture; Z88.7 Allergy status to serum and vaccine; Z91.041 Radiographic dye allergy status
CPT/HCPCS: 97161; 88108; 88305; 80053; 80048 ×4; 85025 ×3; 80202 ×2; 81003; 87070; 87205; 87075; 76942; 76770; 19000; G0378 ×5; J3370 ×5; J2001; J1650 ×4; J0692 ×5; J1644; 96361; 96372; 96375; 96376

== ENCOUNTER → 2021-05-10 | Outpatient (CLI) | payer OTHER ==
[2021-05-10 12:44] VITALS: BP 130/76; PULSE 73; RESP 20; TEMP 98.4
--- NOTE | 2021-05-10 12:59 | P.PN ---
Subjective Progress Note Date: 05/10/21 stage IA left breast cancer, surgery [id number] Stage IA T1 N0 M0 ER/DE positive HER-2/ernestine negative grade 1 invasive ductal carcinoma of the left breast Yvette is a 70-year-old white female status post left breast lumpectomy and sentinel node biopsy on [id number]. Post procedure she received radiation therapy. She had an Oncotype test done which was low and she did not receive chemotherapy. She had a bilateral mammogram performed on 06-30-20 This was benign BIRADS 2 and follow-up mammogram of both breasts in 1 year was recommended. She was started on Arimidx she stopped this secondary to hot flashes, she than started aromasin which she is tolerating without difficulty. She states that her nails are better. She is having decreased night sweats. Secondary to marked asymmetry of the brush underwent a right breast mammoplasty on 7620. Postprocedure she did well but developed some erythema of the medial and inferior aspect of the breast. She was treated with oral antibiotics with intermittent resolution. When she was seen on 04-20-21 she was noted to have swelling of the right breast and ultrasound was performed which time the seroma was identified. Proximally 160 mL of fluid was removed and cultures revealed pseudomonas. She was changed to an antibiotics to which this was sensitive. She returned for ultrasound on 05-02-21 for repeat ultrasound. On repeat ultrasound only approximately 15 mL of fluid was identified this was aspirated and this was serous-appearing in nature. That culture did not show any organisms. The patient was admitted for IV antibiotic therapy secondary to the erythema. She was discharged on 05-06-21 on oral antibiotics Keflex and ciproflo xacin. At this time she has had no fever or chills. She is not complaining of any breast pain. The erythema has markedly decreased. She did have some blistering in the superior medial aspect of the areolar complex which has resolved. Objective - Vital Signs Vital signs: Vital Signs Temp 98.4 F 05/10/21 12:40 Pulse 73 05/10/21 12:40 Resp 20 05/10/21 12:40 BP 130/76 05/10/21 12:40 Pulse Ox 97 05/10/21 12:40 Intake & Output 05/09/21 05/10/21 05/10/21 18:59 06:59 18:59 Weight 113.398 kg - Constitutional General appearance: Present: cooperative - EENT Eyes: Present: EOMI ENT: Present: hearing grossly normal - Neck Neck: Present: normal ROM - Respiratory Respiratory: bilateral: CTA - Cardiovascular Heart sounds: normal: S1, S2 - Integumentary Integumentary Comment(s): Persistent erythema on the medial superior aspect of the breast which is largely resolved swelling in the breast is markedly decreased - Musculoskeletal Musculoskeletal: Present: gait normal - Psychiatric Psychiatric: Present: A&O x's 3, appropriate affect, intact judgment & insight Assessment and Plan Assessment: Impression: Resolving cellulitis right breast Plan: 1. Patient is following up with infectious disease on [id number] 2. If patient has any changes she will call us sooner 3. Follow. Approximately 3 weeks CC: Dr. Hastings
== END ==
LOC: WWCWWP 12:16
PROVIDERS: ATTEND Surgery
DX: N61.0 Mastitis without abscess (principal); Z91.041 Radiographic dye allergy status; Z88.7 Allergy status to serum and vaccine; Z87.891 Personal history of nicotine dependence

== ENCOUNTER → 2021-06-08 | Outpatient (CLI) | payer OTHER ==
[2021-06-08 12:35] VITALS: BP 116/76; PULSE 83; RESP 16; TEMP 97.8
--- NOTE | 2021-06-08 13:18 | P.PN ---
Progress Note - Text Progress Note Date: 06/08/21 stage IA left breast cancer, surgery [id number] Stage IA T1 N0 M0 ER/CT positive HER-2/ernestine negative grade 1 invasive ductal carcinoma of the left breast Yvette is a 70-year-old white female status post left breast lumpectomy and sentinel node biopsy on [id number]. Post procedure she received radiation therapy. She had an Oncotype test done which was low and she did not receive chemotherapy. She had a bilateral mammogram performed on 06-30-20 This was benign BIRADS 2 and follow-up mammogram of both breasts in 1 year was recommended. She was started on Arimidx she stopped this secondary to hot flashes, she than started aromasin which she is tolerating without difficulty. She states that her nails are better. She is having decreased night sweats. Secondary to marked asymmetry of the breast she underwent a right breast mammoplasty on 7620. Postprocedure she did well but developed some erythema of the medial and inferior aspect of the breast. She was treated with oral antibiotics with intermittent resolution. When she was seen on 04-20-21 she was noted to have swelling of the right breast and ultrasound was performed which time the seroma was identified. Proximally 160 mL of fluid was removed and cultures revealed pseudomonas. She was changed to an antibiotics to which this was sensitive. She returned for ultrasound on 05-02-21 for repeat ultrasound. On repeat ultrasound only approximately 15 mL of fluid was identified this was aspirated and this was serous-appearing in nature. That culture did not show any organisms. The patient was admitted for IV antibiotic therapy secondary to the erythema. She was discharged on 05-06-21 on oral antibiotics Keflex and ciprofloxacin. At this time she has had no fever or chills. On her last visit of 05-10-21 she was not complaining of any breast pain. The erythema had markedly decreased. She did have some blistering in the superior medial aspect of the areolar complex which had resolved. At this time she is doing well with no fever or chills. She is not complaining of any pain. She did note a small pustule/blister in the medial aspect of the inferior aspect of the wound which has resolved. The patient's last bilateral mammogram was in June 2020. She is still taking aromasin. She related a course of radiation therapy on the left breast. Physical exam: Lungs: Clear Heart: Regular rate and rhythm Past examination: Inspection: Well-healed scars bilaterally Right breast: Multi-positional exam no evidence of any infection or dominant masses or nodules of concern there are postoperative changes in the 12 o'clock position which are non-worrisome Right axilla: No adenopathy of concern left breast: Multi-positional exam no evidence of any recurrent disease fibrocystic changes no dominant masses or nodules of concern Left axilla: No adenopathy of concern Impression: 1. At this time the area of the right breast seems to be completely healed with no evidence of infection 2. No evidence of any recurrent left breast cancer Plan: 1. Bilateral mammogram back on schedule and follow up after this 2. Continue Aromasin follow with medical oncology 3. Follow with radiation oncology CC: Dr. Hastings
== END ==
LOC: WWCWWP 12:19
PROVIDERS: ATTEND Surgery
DX: Z08 Encounter for follow-up examination after completed treatment for malignant neoplasm (principal); Z85.3 Personal history of malignant neoplasm of breast; Z98.890 Other specified postprocedural states; Z79.811 Long term (current) use of aromatase inhibitors; Z91.041 Radiographic dye allergy status; Z88.7 Allergy status to serum and vaccine; Z87.891 Personal history of nicotine dependence

== ENCOUNTER → 2021-08-02 | Outpatient (CLI) | payer MEDICAID ==
--- NOTE | 2021-08-02 10:37 | MM ---
Reason for exam: additional evaluation requested from prior study. Last mammogram was performed 1 year and 1 month ago. History: Patient is postmenopausal and has history of breast cancer at age 67. Benign US breast aspiration single RT of the right breast, May 02, 2021. Benign US breast aspiration ea add RT of the right breast, April 20, 2021. Benign US breast aspiration single RT of the right breast, April 20, 2021. Reconstruction of the right breast, March 2021. Malignant MG pre op needle loc LT of the left breast, July 14, 2018. Malignant US biopsy breast VAD LT of the left breast, June 11, 2018. Lumpectomy of the left breast, 2017. Radiation therapy of the left breast, 2018. Took estrogen for 5 years. Taking antineoplastic for 3 months. Physical Findings: Nurse did not find any significant physical abnormalities on exam. MG Diagnostic Mammo w CAD PAU Bilateral CC and MLO view(s) were taken. XCCL view(s) were taken of the right breast. Prior study comparison: June 30, 2020, bilateral MG 3d screening mammo w/cad. May 28, 2019, bilateral MG 3d screening mammo w/cad. There are scattered fibroglandular densities. Stable post surgical and post therapy change left breast. Post surgical change right breast. Residual inferior skin and trabecular thickening likely sequela of patient's reconstruction and infection. 3 month follow up recommended at the time of ultrasound follow up. These results were verbally communicated with the patient and result sheet given to the patient on 08/02/21. ASSESSMENT: Probably benign, BI-RAD 3 RECOMMENDATION: Follow-up diagnostic mammogram and ultrasound of the right breast in 3 months.
== END | disposition home or self-care (01) ==
LOC: RADMAMWWP 08:16
PROVIDERS: ATTEND Surgery
DX: N64.89 Other specified disorders of breast (principal); Z78.0 Asymptomatic menopausal state; Z85.3 Personal history of malignant neoplasm of breast
CPT/HCPCS: 77066

== ENCOUNTER → 2021-08-09 | Outpatient (CLI) | payer BC ==
[2021-08-09 13:59] VITALS: BP 133/75; PULSE 73; RESP 18; TEMP 97.9
--- NOTE | 2021-08-09 14:35 | P.PN ---
Subjective Progress Note Date: 08/09/21 Principal diagnosis: left breast cancer stage IA 2018 Yvette 70-year-old white female who is status post left breast lumpectomy and sentinel node biopsy on [id number]. This was done for a stage I a left breast invasive ductal carcinoma. Post procedure she received radiation therapy. She had an Oncotype test done which was low and she did not receive chemotherapy. She was started on a rim index but stopped this secondary to hot flashes, she was then started on Aromasin which she is tolerating without difficulty. Secondary to asymmetry of the breast underwent a right breast mammoplasty and 7621. Post procedure she initially did well but then developed an infection of the right breast. She was admitted to the hospital for IV antibiotic therapy secondary to erythema/cellulitis. She was discharged home on 8821 and oral antibiotics Keflex and ciprofloxacin. [place] [address] this was probably benign BIRADS 3 and follow-up diagnostic mammogram and ultrasound of the right breast in 3 months was recommended. The patient does not complain of any new lumps masses or nodules in either breast. She is not complaining of any recent fever. The patient has been diagnosed with bilateral cataracts she is having surgery next week. Family history: 1. father: esophagus 2. sister: rib cancer 3. great grandmother: uterine cancer 4. patient left breast cancer Hormonal History: menarche: 11 pregnancies: 4, 4 children, first at 16, breast fed: no menopause: 34-total hysterectomy took one ovary, later went back and removed the second ovary BCP: 6 years hormones: 8 years Past Surgical History: 1. back surgery 2. total hysterectomy for fibroids 3. nose 4. gallbaldder 5. Left breast lumpectomy sentinel node biopsy 6. Right breast reduction mammoplasty Past Medical History: 1. HTN 2.hiatal hernia 3. arthritis 4. fibromyalgia Social History: smoke: stopped 10 years ago, smoked 1PPD for 20 years alcohol: occasional wine drugs: none - Constitutional Constitutional: Denies chills, Denies fever - EENT Comment: vertigo at times Eyes: denies blurred vision, denies pain Ears: deny: decreased hearing, ear discharge, earache, tinnitus Ears, nose, mouth and throat: Denies headache, Denies sore throat - Breasts Breasts: bilateral: as per HPI - Cardiovascular Cardiovascular: Reports high blood pressure - Respiratory Comment: former smoker Respiratory: Denies cough - Gastrointestinal Comment: spastic colon Gastrointestinal: Reports diarrhea - Genitourinary (Female) Genitourinary: Denies dysuria, Denies hematuria - Menstruation Menstruation: Reports post hysterectomy - Musculoskeletal Comment: arthritis - Integumentary Integumentary: Denies pruritus, Denies rash - Neurological Neurological: Denies numbness, Denies weakness - Psychiatric Psychiatric: Denies anxiety, Denies depression - Endocrine Endocrine: Denies fatigue, Denies weight change - Hematologic/Lymphatic Comment: baby aspirin - Allergic/Immunologic Allergic/Immunologic: Reports seasonal allergies Objective - Vital Signs Vital signs: Vital Signs Temp 97.9 F 08/09/21 13:54 Pulse 73 08/09/21 13:54 Resp 18 08/09/21 13:54 BP 133/75 08/09/21 13:54 Pulse Ox 96 08/09/21 13:54 Intake & Output 08/08/21 08/09/21 08/09/21 18:59 06:59 18:59 Weight 103.873 kg - Constitutional General appearance: Present: cooperative - EENT Eyes: Present: EOMI ENT: Present: hearing grossly normal - Neck Neck: Present: normal ROM - Respiratory Respiratory: bilateral: CTA - Cardiovascular Rhythm: regular Heart sounds: normal: S1, S2 - Gastrointestinal General gastrointestinal: Present: soft - Integumentary Integumentary: Present: normal turgor - Musculoskeletal Musculoskeletal: Present: gait normal - Psychiatric Psychiatric: Present: A&O x's 3, appropriate affect, intact judgment & insight - Additional findings Additional findings: Breast Exam: BRA: 40D inspection: Minimal mild erythema medial aspect of the right breast Palpation: Right breast: Incisions clean and dry, postop changes, mild fluctuance in the 1 to 2 o'clock position in the periareolar region question seroma Right axilla: No adenopathy of concern Left Breast: Multiple positional exam fibrocystic changes no dominant masses or nodules of concern, postop changes a prior lumpectomy site Left axilla: No adenopathy of concern Assessment and Plan Assessment: Impression: 1. Left breast stage IA invasive ductal carcinoma no evidence of recurrence 2. Status post right breast mammoplasty status post postoperative infection at this time no evidence of infection but questionable seroma in the 1 to 2 o'clock position Plan: 1. Aspiration at 2 o'clock position periareolar region right breast 2. Patient scheduled for cataract surgery next week 3. repeat right breast mammogram and ultrasound in three months (patient has declined and will get it done in December when she returns from [place]) Area of fluctuance in the right breast was prepped using alcohol. This was done after a timeout was performed. An 18-gauge needle on a 10 mL syringe was inserted into the region. Approximately 3 mL of turbid fluid was obtained. This appears that it may be consistent with fat necrosis. This is being sent for culture and sensitivity. It to be cautious the patient is given a prescription for Keflex. I will contact Dr. Choi regarding these findings prior to her cataract surgery. CC: Dr. Hastings
== END ==
LOC: WWCWWP 13:28
PROVIDERS: ATTEND Surgery
DX: Z08 Encounter for follow-up examination after completed treatment for malignant neoplasm (principal); I10 Essential (primary) hypertension; M19.90 Unspecified osteoarthritis, unspecified site; Z87.891 Personal history of nicotine dependence; Z98.82 Breast implant status; Z85.3 Personal history of malignant neoplasm of breast
CPT/HCPCS: 87070; 87205

== ENCOUNTER → 2022-02-01 | Outpatient (CLI) | payer MEDICAID ==
--- NOTE | 2022-02-01 10:04 | MM ---
Reason for exam: follow-up at short interval from prior study. Last mammogram was performed 6 months ago. History: Patient is postmenopausal and has history of breast cancer at age 67. Benign US breast aspiration single RT of the right breast, May 02, 2021. Benign US breast aspiration ea add RT of the right breast, April 20, 2021. Benign US breast aspiration single RT of the right breast, April 20, 2021. Reconstruction of the right breast, March 2021. Malignant MG pre op needle loc LT of the left breast, July 14, 2018. Malignant US biopsy breast VAD LT of the left breast, June 11, 2018. Lumpectomy of the left breast, 2017. Radiation therapy of the left breast, 2018. Took estrogen for 5 years. Taking antineoplastic for 3 months beginning at age 67. Physical Findings: A clinical breast exam by your physician is recommended on an annual basis and results should be correlated with mammographic findings. MG 3D Diag Mammo W/Cad RT CC and MLO view(s) were taken of the right breast. Prior study comparison: August 02, 2021, bilateral MG diagnostic mammo w CAD PAU. June 30, 2020, bilateral MG 3d screening mammo w/cad. The breast tissue is heterogeneously dense. This may lower the sensitivity of mammography. Stable distortion right breast. No significant new findings when compared with previous films. Results were given to the patient verbally at the time of the exam. ASSESSMENT: Incomplete: need additional imaging evaluation, BI-RAD 0 RECOMMENDATION: Ultrasound of the right breast.
--- NOTE | 2022-02-01 10:06 | USB ---
Reason for exam: additional evaluation requested from abnormal screening. History: Patient is postmenopausal and has history of breast cancer at age 67. Benign US breast aspiration single RT of the right breast, May 02, 2021. Benign US breast aspiration ea add RT of the right breast, April 20, 2021. Benign US breast aspiration single RT of the right breast, April 20, 2021. Reconstruction of the right breast, March 2021. Malignant MG pre op needle loc LT of the left breast, July 14, 2018. Malignant US biopsy breast VAD LT of the left breast, June 11, 2018. Lumpectomy of the left breast, 2017. Radiation therapy of the left breast, 2018. Took estrogen for 5 years. Taking antineoplastic for 3 months beginning at age 67. Physical Findings: A clinical breast exam by your physician is recommended on an annual basis and results should be correlated with mammographic findings. US Breast RT Right complete breast ultrasound includes all four quadrants, the retroareolar region and axilla. Finding demonstrates a 0.7 x 0.5 x 0.8cm round, cystic lesion at 8 o'clock and a 1.6 x 0.8 x 1.1cm oval, cystic lesion at 9 o'clock. Cystic post surgical changes noted. Results were given to the patient verbally at the time of the exam. ASSESSMENT: Benign, BI-RAD 2 RECOMMENDATION: Follow-up diagnostic mammogram of both breasts in 6 months. Back on schedule.
== END | disposition home or self-care (01) ==
LOC: RADMAMWWP 09:03
PROVIDERS: ATTEND Surgery
DX: N60.01 Solitary cyst of right breast (principal); Z85.3 Personal history of malignant neoplasm of breast; Z78.0 Asymptomatic menopausal state; Z92.3 Personal history of irradiation
CPT/HCPCS: 77061; 77065

== ENCOUNTER → 2022-08-05 | Outpatient (CLI) | payer OTHER ==
--- NOTE | 2022-08-05 13:24 | MM ---
Reason for Exam: Follow-up at short interval from prior study. Last screening mammogram was performed 12 month(s) ago. Patient History: Menarche at age 10. First Full-Term at age 20. Left ovary removed at age 36. Right ovary removed at age 36. Hysterectomy at age 36. Postmenopausal. Breast cancer, age 67. Patient used Estrogen for 5 years. 2018, Lumpectomy on the Left side. 05/02/2021, Benign Cyst Aspiration on the right side. 04/20/2021, Benign Cyst Aspiration on the right side. 04/20/2021, Benign Cyst Aspiration on the right side. 07/14/2018, Malignant Core Biopsy on the left side. 06/11/2018, Malignant Core Biopsy on the left side. 2018, Radiation Therapy on the left side. 03/2021, Implant on the right side. Tissue Density: There are scattered fibroglandular densities. Findings: Analyzed By CAD. Postsurgical changes of the left breast redemonstrated. Stable distortion of the right breast. No new suspicious masses. Stable bilateral round calcifications. No significant change from prior exam. Overall Assessment: Benign, BI-RAD 2 Management: Diagnostic Mammogram of both breasts in 1 year. A clinical breast exam by your physician is recommended on an annual basis and results should be correlated with mammographic findings. This exam should not preclude additional follow-up of suspicious palpable abnormalities. Results were given to the patient verbally at the time of exam. Electronically signed and approved by: Souleymane Molina D.O.
== END | disposition home or self-care (01) ==
LOC: RADMAMWWP 12:35
PROVIDERS: ATTEND Surgery
DX: Z78.0 Asymptomatic menopausal state (principal); Z85.3 Personal history of malignant neoplasm of breast; Z98.890 Other specified postprocedural states
CPT/HCPCS: 77062; 77066

== ENCOUNTER → 2022-08-09 | Outpatient (CLI) | payer OTHER ==
[2022-08-09 13:42] VITALS: BP 137/84; PULSE 79; RESP 18; TEMP 98
--- NOTE | 2022-08-09 13:57 | P.PN ---
Subjective Progress Note Date: 08/09/22 Principal diagnosis: stage IA left breast invasive ductal cancer 2018 left breast cancer stage IA 2018 Yvette is a 71-year-old white female who is status post left breast lumpectomy and sentinel node biopsy on [id number]. This was done for a stage IA left breast invasive ductal carcinoma. Post procedure she received radiation therapy. She had an Oncotype test done which was low and she did not receive chemotherapy. She was started on arimidex but stopped this secondary to hot flashes, she was then started on Aromasin which she is tolerating but is complaining of hot flashes. Secondary to asymmetry of the breast underwent a right breast mammoplasty on 76. Post procedure she initially did well but then developed an infection of the right breast. She was admitted to the hospital for IV antibiotic therapy secondary to erythema/cellulitis. She was discharged home on 88 and oral antibiotics Keflex and ciprofloxacin. The patient had a bilateral mammogram on this was probably benign BIRADS 2. The patient does not complain of any new lumps masses or nodules in either breast. She is not complaining of any recent fever. The patient has been diagnosed with bilateral cataracts she is having surgery next week. Family history: 1. father: esophagus 2. sister: rib cancer 3. great grandmother: uterine cancer 4. patient left breast cancer Hormonal History: menarche: 11 pregnancies: 4, 4 children, first at 16, breast fed: no menopause: 34-total hysterectomy took one ovary, later went back and removed the second ovary BCP: 6 years hormones: 8 years Past Surgical History: 1. back surgery 2. total hysterectomy for fibroids 3. nose 4. gallbaldder 5. Left breast lumpectomy sentinel node biopsy 6. Right breast reduction mammoplasty 7. varicose vein surgery 8. bilateral cataract surgery 9. fracture of right ankle/surgery 10. bilateral cataract surgery Past Medical History: 1. HTN 2.hiatal hernia 3. arthritis 4. fibromyalgia Social History: smoke: stopped 10 years ago, smoked 1PPD for 20 years alcohol: occasional wine drugs: none - Constitutional Constitutional: Denies chills, Denies fever - EENT Comment: vertigo at times Eyes: denies blurred vision, denies pain Ears: deny: decreased hearing, ear discharge, earache, tinnitus Ears, nose, mouth and throat: Denies headache, Denies sore throat - Breasts Breasts: bilateral: as per HPI - Cardiovascular Cardiovascular: Reports high blood pressure - Respiratory Comment: former smoker Respiratory: Denies cough - Gastrointestinal Comment: spastic colon Gastrointestinal: Reports diarrhea - Genitourinary (Female) Genitourinary: Denies dysuria, Denies hematuria - Menstruation Menstruation: Reports post hysterectomy - Musculoskeletal Comment: arthritis - Integumentary Integumentary: Denies pruritus, Denies rash - Neurological Neurological: Denies numbness, Denies weakness - Psychiatric Psychiatric: Denies anxiety, Denies depression - Endocrine Endocrine: Denies fatigue, Denies weight change - Hematologic/Lymphatic Comment: baby aspirin - Allergic/Immunologic Allergic/Immunologic: Reports seasonal allergies Objective - Vital Signs Vital signs: Vital Signs Temp 98.0 F 08/09/22 13:37 Pulse 79 08/09/22 13:37 Resp 18 08/09/22 13:37 BP 137/84 08/09/22 13:37 Pulse Ox 95 08/09/22 13:37 FiO2 Intake & Output 08/08/22 08/09/22 08/09/22 18:59 06:59 18:59 Weight 104.326 kg - Constitutional General appearance: Present: cooperative - EENT Eyes: Present: EOMI ENT: Present: hearing grossly normal - Neck Neck: Present: normal ROM - Respiratory Respiratory: bilateral: CTA - Cardiovascular Rhythm: regular Heart sounds: normal: S1, S2 - Gastrointestinal General gastrointestinal: Present: soft - Integumentary Integumentary: Present: normal turgor - Musculoskeletal Musculoskeletal: Present: gait normal - Psychiatric Psychiatric: Present: A&O x's 3, appropriate affect, intact judgment & insight - Additional findings Additional findings: Breast Exam: BRA: 36D Inspection: bilateral grade 2/3 ptosis palpation: Breasts: Multi-positional exam post surgical changes no dominant masses or nodules of concern Right axilla: No adenopathy of concern Left breast: Multi-positional exam post radiation and postsurgical changes no dominant masses or nodules of concern Left axilla: No adenopathy of concern Assessment and Plan Assessment: Impression: Left breast stage IA invasive ductal carcinoma no evidence of recurrent disease Recent bilateral mammogram [id number] benign BIRADS 2 Patient presently on Aromasin complaining of some hot flashes will discuss with medical oncology Plan: Bilateral mammogram in 1 year Follow-up in 6 months for examination Discussed with medical oncology the Aromasin and hot flashes Cc: Dr. Hastings
== END | disposition home or self-care (01) ==
LOC: WWCWWP 13:21
PROVIDERS: ATTEND Surgery
DX: Z53.9 Procedure and treatment not carried out, unspecified reason (principal)

== ENCOUNTER → 2023-08-07 | Outpatient (CLI) | payer OTHER, MEDICARE ==
--- NOTE | 2023-08-07 13:30 | MM ---
Reason for Exam: Hx of breast cancer, conservation therapy. Last screening mammogram was performed 12 month(s) ago. Patient History: Menarche at age 10. First Full-Term at age 20. Left ovary removed at age 36. Right ovary removed at age 36. Hysterectomy at age 36. Postmenopausal. Breast cancer, left, age 67. Patient used Estrogen for 5 years. 2018, Lumpectomy on the Left side. 05/02/2021, Benign Cyst Aspiration on the right side. 04/20/2021, Benign Cyst Aspiration on the right side. 04/20/2021, Benign Cyst Aspiration on the right side. 07/14/2018, Malignant Core Biopsy on the left side. 06/11/2018, Malignant Core Biopsy on the left side. 2018, Radiation Therapy on the left side. Prior Study Comparison: 08/02/2021 Bilateral Diagnostic Mammogram, [facility]. 02/01/2022 Right Diagnostic Mammogram, [facility]. 08/05/2022 Bilateral MG 3D diag mammo w/cad PAU, [facility]. Tissue Density: There are scattered fibroglandular densities. Findings: Analyzed By CAD. Pattern appears stable. Right breast is larger than the left. Postbiopsy changes are within the posterior left breast. Patient reports some interval skin retraction at the level of the prior biopsy. No suspicious changes at the level of the Biosorb is identified. No suspicious groups of microcalcifications, spiculated or lobular masses, architectural distortion or other secondary signs of malignancy are mammographically apparent. Overall Assessment: Benign, BI-RAD 2 Management: Screening Mammogram of both breasts in 1 year. A negative mammogram report should not preclude additional follow up of suspicious palpable abnormalities. Patient should continue monthly self breast exam. A clinical breast exam by your physician is recommended on an annual basis and results should be correlated with mammographic findings. Electronically signed and approved by: Reginaldo Murillo D.O. Radiologis
--- NOTE | 2023-08-07 14:18 | P.PN ---
Subjective Progress Note Date: 08/07/23 stage IA left breast invasive ductal cancer 2018 left breast cancer stage IA 2018 Yvette is a 72-year-old white female who is status post left breast lumpectomy and sentinel node biopsy on [id number]. This was done for a stage IA left breast invasive ductal carcinoma. Post procedure she received radiation therapy. She had an Oncotype test done which was low and she did not receive chemotherapy. She was started on arimidex but stopped this secondary to hot flashes, she was then started on Aromasin which she is tolerating but is complaining of hot flashes. Secondary to asymmetry of the breast underwent a right breast mammoplasty on 76. Post procedure she initially did well but then developed an infection of the right breast. She was admitted to the hospital for IV antibiotic therapy secondary to erythema/cellulitis. She was discharged home on 8820 and oral antibiotics Keflex and ciprofloxacin. The patient had a bilateral mammogram on this was probably benign BIRADS 2. The patient does not complain of any new lumps masses or nodules in either breast. She is complaining of some indentation in the lateral aspect of the left breast which has occurred over the last several weeks. In the past year the patient's 32-year-old granddaughter unexpectedly of a blood clot to her heart In June her brother fell hitting his head and within 4 days And her sister yesterday was told she had stage IV unresectable pancreatic cancer The patient has had a stroke in the last year with no residual She had a bilatrearl mamogram on 08-07-23 which was BIRAD 2 Family history: 1. father: esophagus 2. sister: rib cancer 3. great grandmother: uterine cancer 4. patient left breast cancer Hormonal History: menarche: 11 pregnancies: 4, 4 children, first at 16, breast fed: no menopause: 34-total hysterectomy took one ovary, later went back and removed the second ovary BCP: 6 years hormones: 8 years Past Surgical History: 1. back surgery 2. total hysterectomy for fibroids 3. nose 4. gallbaldder 5. Left breast lumpectomy sentinel node biopsy 6. Right breast reduction mammoplasty 7. varicose vein surgery 8. bilateral cataract surgery 9. fracture of right ankle/surgery 10. bilateral cataract surgery Past Medical History: 1. HTN 2.hiatal hernia 3. arthritis 4. fibromyalgia Social History: smoke: stopped 10 years ago, smoked 1PPD for 20 years alcohol: occasional wine drugs: none - Constitutional Constitutional: Denies chills, Denies fever - EENT Comment: vertigo at times Eyes: denies blurred vision, denies pain Ears: deny: decreased hearing, ear discharge, earache, tinnitus Ears, nose, mouth and throat: Denies headache, Denies sore throat - Breasts Breasts: bilateral: as per HPI - Cardiovascular Cardiovascular: Reports high blood pressure - Respiratory Comment: former smoker Respiratory: Denies cough - Gastrointestinal Comment: spastic colon Gastrointestinal: Reports diarrhea - Genitourinary (Female) Genitourinary: Denies dysuria, Denies hematuria - Menstruation Menstruation: Reports post hysterectomy - Musculoskeletal Comment: arthritis - Integumentary Integumentary: Denies pruritus, Denies rash - Neurological Neurological: Denies numbness, Denies weakness - Psychiatric Psychiatric: Denies anxiety, Denies depression - Endocrine Endocrine: Denies fatigue, Denies weight change - Hematologic/Lymphatic Comment: baby aspirin - Allergic/Immunologic Allergic/Immunologic: Reports seasonal allergies Objective - Constitutional General appearance: Present: cooperative - EENT Eyes: Present: EOMI ENT: Present: hearing grossly normal - Neck Neck: Present: normal ROM - Respiratory Respiratory: bilateral: CTA - Cardiovascular Rhythm: regular Heart sounds: normal: S1, S2 - Gastrointestinal General gastrointestinal: Present: soft - Integumentary Integumentary: Present: normal turgor - Musculoskeletal Musculoskeletal: Present: gait normal - Psychiatric Psychiatric: Present: A&O x's 3, appropriate affect, intact judgment & insight - Additional findings Additional findings: Breast Exam: BRA: 36D Inspection: bilateral grade 2/3 ptosis palpation: Breasts: Multi-positional exam post surgical changes no dominant masses or nodules of concern Right axilla: No adenopathy of concern Left breast: Multi-positional exam post radiation and postsurgical changes no dominant masses or nodules of concern; some retraction in the lateral aspect of the breast near the lumpectomy site with some mild fullness at that site Left axilla: No adenopathy of concern Assessment and Plan Assessment: Impression: Left breast stage IA invasive ductal carcinoma no evidence of recurrent disease Recent bilateral mammogram 119-23 benign BIRADS 2 retraction lateral aspect left breast Plan: Bilateral mammogram in 1 year retraction lateral aspect of the left breast ultrasound at that site Follow-up in 6 months for examination stopped aromasin is not following with medical oncology Cc: Dr. Hastings
--- NOTE | 2023-08-07 14:54 | USB ---
Reason for Exam: Clinical finding. Patient History: Menarche at age 10. First Full-Term at age 20. Left ovary removed at age 36. Right ovary removed at age 36. Hysterectomy at age 36. Postmenopausal. Breast cancer, left, age 67. Patient used Estrogen for 5 years. 2018, Lumpectomy on the Left side. 05/02/2021, Benign Cyst Aspiration on the right side. 04/20/2021, Benign Cyst Aspiration on the right side. 04/20/2021, Benign Cyst Aspiration on the right side. 07/14/2018, Malignant Core Biopsy on the left side. 06/11/2018, Malignant Core Biopsy on the left side. 2018, Radiation Therapy on the left side. Technique: Method: Targeted. Prior Study Comparison: 08/02/2021 Bilateral Diagnostic Mammogram, [facility]. 02/01/2022 Right Diagnostic Mammogram, [facility]. 08/05/2022 Bilateral MG 3D diag mammo w/cad PAU, [facility]. Findings: The lower section of the breast of the left breast, the axilla of the left breast and the retroareolar of the left breast were scanned. Technique utilized:US breast limited LT Image; Ultrasound imaging of: Area of concern, retroareolar region and axilla. Postsurgical changes at 3:00 12 cm from nipple this area correlates with a postsurgical change. There is posterior shadowing. No evidence for organizing fluid collection or mass. Technique utilized:US breast limited LT Image; Ultrasound imaging of: Area of concern, retroareolar region and axilla. Postsurgical changes at 3:00 12 cm from nipple. This area correlates with a postsurgical change seen on mammography. There is posterior shadowing likely secondary to dense tissue and calcification/surgical clips.. No evidence for organizing fluid collection or mass. Overall Assessment: Benign, BI-RAD 2 Management: Screening Mammogram of both breasts in 1 year. A clinical breast exam by your physician is recommended on an annual basis and results should be correlated with mammographic findings. This exam should not preclude additional follow-up of suspicious palpable abnormalities. Results were given to the patient verbally at the time of exam. Electronically signed and approved by: Jan Wilson DO
== END | disposition home or self-care (01) ==
LOC: RADMAMWWP 12:47
PROVIDERS: ATTEND Surgery
DX: R92.323 Mammographic fibroglandular density, bilateral breasts (principal); Z85.3 Personal history of malignant neoplasm of breast; Z78.0 Asymptomatic menopausal state
CPT/HCPCS: 77062; 77066

== ENCOUNTER → 2023-08-07 | Outpatient (CLI) | payer OTHER, MEDICARE ==
[2023-08-07 14:02] VITALS: BP 143/85; PULSE 85; RESP 18; TEMP 98
== END | disposition home or self-care (01) ==
LOC: WWCWWP 12:50
PROVIDERS: ATTEND Surgery
DX: I10 Essential (primary) hypertension (principal); K44.9 Diaphragmatic hernia without obstruction or gangrene; M19.90 Unspecified osteoarthritis, unspecified site; M79.7 Fibromyalgia; Z85.3 Personal history of malignant neoplasm of breast; Z87.891 Personal history of nicotine dependence; Z79.82 Long term (current) use of aspirin; Z88.7 Allergy status to serum and vaccine; Z91.041 Radiographic dye allergy status

== ENCOUNTER → 2023-11-07 | Outpatient (CLI) | payer OTHER, MEDICARE ==
--- NOTE | 2023-11-07 12:17 | P.PN ---
Subjective Progress Note Date: 11/07/23 08/07/23 stage IA left breast invasive ductal cancer 2018 left breast cancer stage IA 2018 Yvette is a 72-year-old white female who is status post left breast lumpectomy and sentinel node biopsy on [id number]. This was done for a stage IA left breast invasive ductal carcinoma. Post procedure she received radiation therapy. She had an Oncotype test done which was low and she did not receive chemotherapy. She was started on arimidex but stopped this secondary to hot flashes, she was then started on Aromasin which she is tolerating but is complaining of hot flashes. Secondary to asymmetry of the breast underwent a right breast mammoplasty on 7620. Post procedure she initially did well but then developed an infection of the right breast. She was admitted to the hospital for IV antibiotic therapy secondary to erythema/cellulitis. She was discharged home on 8820 and oral antibiotics Keflex and ciprofloxacin. The patient had a bilateral mammogram on this was probably benign BIRADS 2. The patient does not complain of any new lumps masses or nodules in either breast. She is complaining of some indentation in the lateral aspect of the left breast which has occurred over the last several weeks. In the past year the patient's 32-year-old granddaughter unexpectedly of a blood clot to her heart In June her brother fell hitting his head and within 4 days And her sister yesterday was told she had stage IV unresectable pancreatic cancer The patient has had a stroke in the last year with no residual She had a bilateral mamogram on 08-07-23 which was BIRAD 2 11-07-23 she is not complaining of any new lumps masses or nodules of concern in either breast. Her last bilateral mammogram was on 08-07-2023 which was BI-RADS 2 She is not taking any hormone therapy at this time. Family history: 1. father: esophagus 2. sister: rib cancer 3. great grandmother: uterine cancer 4. patient left breast cancer Hormonal History: menarche: 11 pregnancies: 4, 4 children, first at 16, breast fed: no menopause: 34-total hysterectomy took one ovary, later went back and removed the second ovary BCP: 6 years hormones: 8 years Past Surgical History: 1. back surgery 2. total hysterectomy for fibroids 3. nose 4. gallbaldder 5. Left breast lumpectomy sentinel node biopsy 6. Right breast reduction mammoplasty 7. varicose vein surgery 8. bilateral cataract surgery 9. fracture of right ankle/surgery 10. bilateral cataract surgery Past Medical History: 1. HTN 2.hiatal hernia 3. arthritis 4. fibromyalgia Social History: smoke: stopped 10 years ago, smoked 1PPD for 20 years alcohol: occasional wine drugs: none - Constitutional Constitutional: Denies chills, Denies fever - EENT Comment: vertigo at times Eyes: denies blurred vision, denies pain Ears: deny: decreased hearing, ear discharge, earache, tinnitus Ears, nose, mouth and throat: Denies headache, Denies sore throat - Breasts Breasts: bilateral: as per HPI - Cardiovascular Cardiovascular: Reports high blood pressure - Respiratory Comment: former smoker Respiratory: Denies cough - Gastrointestinal Comment: spastic colon Gastrointestinal: Reports diarrhea - Genitourinary (Female) Genitourinary: Denies dysuria, Denies hematuria - Menstruation Menstruation: Reports post hysterectomy - Musculoskeletal Comment: arthritis - Integumentary Integumentary: Denies pruritus, Denies rash - Neurological Neurological: Denies numbness, Denies weakness - Psychiatric Psychiatric: Denies anxiety, Denies depression - Endocrine Endocrine: Denies fatigue, Denies weight change - Hematologic/Lymphatic Comment: baby aspirin - Allergic/Immunologic Allergic/Immunologic: Reports seasonal allergies Objective - Vital Signs Vital signs: Intake & Output 11/06/23 11/07/23 11/07/23 18:59 06:59 18:59 Weight 109.769 kg - Constitutional General appearance: Present: cooperative - EENT Eyes: Present: EOMI ENT: Present: hearing grossly normal - Neck Neck: Present: normal ROM - Respiratory Respiratory: bilateral: CTA - Cardiovascular Heart sounds: normal: S1, S2 - Gastrointestinal General gastrointestinal: Present: soft - Integumentary Integumentary: Present: normal turgor - Musculoskeletal Musculoskeletal: Present: gait normal - Psychiatric Psychiatric: Present: A&O x's 3, appropriate affect, intact judgment & insight - Additional findings Additional findings: Inspection: bilateral grade 2/3 ptosis palpation: Breasts: Multi-positional exam post surgical changes no dominant masses or nodules of concern Right axilla: No adenopathy of concern Left breast: Multi-positional exam post radiation and postsurgical changes no dominant masses or nodules of concern; some retraction in the lateral aspect of the breast near the lumpectomy site with some mild fullness at that site,no lesions of concern Left axilla: No adenopathy of concern Assessment and Plan Assessment: Impression: Left breast stage IA invasive ductal carcinoma no evidence of recurrent disease Recent bilateral mammogram 119-23 benign BIRADS 2 retraction lateral aspect left breast stable Plan: Bilateral mammogram in July Follow-up in 6 months for examination April 2024 stopped aromasin is not following with medical oncology Cc: Dr. Hastings
[2023-11-07 12:37] VITALS: BP 128/72; PULSE 73; RESP 16; TEMP 97.5
== END ==
LOC: WWCWWP 11:01
PROVIDERS: ATTEND Surgery
DX: N64.89 Other specified disorders of breast (principal); N64.53 Retraction of nipple; I10 Essential (primary) hypertension; M19.90 Unspecified osteoarthritis, unspecified site; Z87.19 Personal history of other diseases of the digestive system; Z85.3 Personal history of malignant neoplasm of breast; Z87.39 Personal history of other diseases of the musculoskeletal system and connective tissue; Z80.3 Family history of malignant neoplasm of breast; Z86.73 Personal history of transient ischemic attack (TIA), and cerebral infarction without residual deficits; Z87.891 Personal history of nicotine dependence; Z91.041 Radiographic dye allergy status; Z88.7 Allergy status to serum and vaccine; Z79.82 Long term (current) use of aspirin; Z79.899 Other long term (current) drug therapy

== ENCOUNTER → 2024-08-11 | Outpatient (CLI) | payer OTHER, MEDICARE ==
--- NOTE | 2024-08-11 13:50 | MM ---
Reason for Exam: Additional evaluation requested from prior study. Last screening mammogram was performed 12 month(s) ago. Patient History: Menarche at age 10. First Full-Term at age 20. Left ovary removed at age 36. Right ovary removed at age 36. Hysterectomy at age 36. Postmenopausal. Breast cancer, left, age 67. Patient used Estrogen for 5 years. 2017, Lumpectomy on the Left side. 05/02/2021, Benign Cyst Aspiration on the right side. 04/20/2021, Benign Cyst Aspiration on the right side. 04/20/2021, Benign Cyst Aspiration on the right side. 07/14/2018, Malignant Core Biopsy on the left side. 06/11/2018, Malignant Core Biopsy on the left side. 2018, Radiation Therapy on the left side. Prior Study Comparison: 06/11/2018 Left Diagnostic Mammogram, [facility]. 01/26/2019 Left Diagnostic Mammogram, [facility]. 05/28/2019 Bilateral Screening Mammogram, [facility]. 06/30/2020 Bilateral Screening Mammogram, [facility]. 08/02/2021 Bilateral Diagnostic Mammogram, [facility]. 02/01/2022 Right Diagnostic Mammogram, [facility]. 08/05/2022 Bilateral MG 3D diag mammo w/cad PAU, [facility]. 08/07/2023 Bilateral MG 3D diag mammo w/cad PAU, [facility]. Tissue Density: There are scattered areas of fibroglandular density. Findings: Analyzed By CAD. The pattern is stable. Focal asymmetry is within the outer right breast. Post lumpectomy changes in the posterior left breast are at the edge of the [id number] Coarse calcifications are within the anterior right breast. Scattered punctate calcifications are present.No suspicious groups of microcalcifications, spiculated or lobular masses, architectural distortion or other secondary signs of malignancy are mammographically apparent. Overall Assessment: Benign, BI-RAD 2 Management: Screening Mammogram of both breasts in 1 year. A negative mammogram report should not preclude additional follow up of suspicious palpable abnormalities. Patient should continue monthly self breast exam. A clinical breast exam by your physician is recommended on an annual basis and results should be correlated with mammographic findings. Note on Fang scores and lifetime risk: 1. A Fang score greater than 3% is considered moderate risk. If this is the case, consider specialist referral to assess eligibility for a risk reducing agent. 2. If overall lifetime risk for the development of breast cancer is 20% or higher, the patient may qualify for future screening with alternating mammogram and breast MRI. [facility], , 08/11/2024 1:48 PM. Electronically signed and approved by: Reginaldo Murillo D.O. Radiologis
== END | disposition home or self-care (01) ==
LOC: RADMAMWWP 12:38
PROVIDERS: ATTEND Surgery
DX: Z85.3 Personal history of malignant neoplasm of breast (principal); Z90.722 Acquired absence of ovaries, bilateral; Z78.0 Asymptomatic menopausal state; R92.323 Mammographic fibroglandular density, bilateral breasts
CPT/HCPCS: 77062; 77066

== ENCOUNTER → 2024-08-12 | Outpatient (CLI) | payer OTHER, MEDICARE ==
[2024-08-12 12:01] VITALS: BP 141/74; PULSE 86; RESP 17; TEMP 98.3
--- NOTE | 2024-08-12 12:15 | P.PN ---
Subjective Progress Note Date: 08/12/24 08-12-24 Yvette is a 73-year-old white female who is status post left breast lumpectomy and sentinel node biopsy and 07-14-2018. This was done for a stage Ia left breast invasive ductal carcinoma. Postprocedure she received radiation therapy. She had an Oncotype test which was low and did not receive any chemotherapy. She was started on Arimidex but stopped this secondary to hot flashes and then started on Aromasin which she also stopped. Secondary to asymmetry of the breast she underwent a right breast mammoplasty on 04-03-2021. Postprocedure she initially did well but then developed an infection of the right breast. She was admitted to the hospital for IV antibiotic therapy secondary to er ythema/cellulitis. At this time she is not complaining of any lesions in her breast. She has had a bilateral mammogram on 08-11-2024 which was benign BI-RADS 2, this was personally reviewed. The patient in 2022 had a 32-year-old granddaughter unexpectedly. The same year her brother fell hitting his head and within 4 days. And her sister was told she had stage IV unresectable pancreatic cancer. In that year the patient had a stroke. Family history: 1. father: esophagus 2. sister: rib cancer 3. great grandmother: uterine cancer 4. patient left breast cancer 5. sister pancreatic cancer still living/ lung cancer spread to her kidneys Hormonal History: menarche: 11 pregnancies: 4, 4 children, first at 16, breast fed: no menopause: 34-total hysterectomy took one ovary, later went back and removed the second ovary BCP: 6 years hormones: 8 years Past Surgical History: 1. back surgery 2. total hysterectomy for fibroids 3. nose 4. gallbaldder 5. Left breast lumpectomy sentinel node biopsy 6. Right breast reduction mammoplasty 7. varicose vein surgery 8. bilateral cataract surgery 9. fracture of right ankle/surgery 10. bilateral cataract surgery Past Medical History: 1. HTN 2.hiatal hernia 3. arthritis 4. fibromyalgia Social History: smoke: stopped 10 years ago, smoked 1PPD for 20 years alcohol: occasional wine drugs: none - Constitutional Constitutional: Denies chills, Denies fever - EENT Comment: vertigo at times Eyes: denies blurred vision, denies pain Ears: deny: decreased hearing, ear discharge, earache, tinnitus Ears, nose, mouth and throat: Denies headache, Denies sore throat - Breasts Breasts: bilateral: as per HPI - Cardiovascular Cardiovascular: Reports high blood pressure - Respiratory Comment: former smoker Respiratory: Denies cough - Gastrointestinal Comment: spastic colon Gastrointestinal: Reports diarrhea - Genitourinary (Female) Genitourinary: Denies dysuria, Denies hematuria - Menstruation Menstruation: Reports post hysterectomy - Musculoskeletal Comment: arthritis - Integumentary Integumentary: Denies pruritus, Denies rash - Neurological Neurological: Denies numbness, Denies weakness - Psychiatric Psychiatric: Denies anxiety, Denies depression - Endocrine Endocrine: Denies fatigue, Denies weight change - Hematologic/Lymphatic Comment: baby aspirin - Allergic/Immunologic Allergic/Immunologic: Reports seasonal allergies Objective - Vital Signs Vital signs: Vital Signs Temp 98.3 F 08/12/24 11:59 Pulse 86 08/12/24 11:59 Resp 17 08/12/24 11:59 BP 141/74 08/12/24 11:59 Pulse Ox 96 08/12/24 11:59 FiO2 Intake & Output 08/11/24 08/12/24 08/12/24 18:59 06:59 18:59 Weight 108.862 kg - Constitutional General appearance: Present: cooperative - EENT Eyes: Present: EOMI ENT: Present: hearing grossly normal - Neck Neck: Present: normal ROM - Respiratory Respiratory: bilateral: CTA - Cardiovascular Rhythm: regular Heart sounds: normal: S1, S2 - Integumentary Integumentary: Present: normal turgor - Psychiatric Psychiatric: Present: A&O x's 3, appropriate affect, intact judgment & insight - Additional findings Additional findings: Breast Exam: Inspection: bilateral grade 2/3 ptosis palpation: Breasts: Multi-positional exam post surgical changes no dominant masses or nodules of concern Right axilla: No adenopathy of concern Left breast: Multi-positional exam post radiation and postsurgical changes no d ominant masses or nodules of concern; some retraction in the lateral aspect of the breast near the lumpectomy site with some mild fullness at that site,no lesions of concern Left axilla: No adenopathy of concern Assessment and Plan Assessment: Impression: Left breast stage IA invasive ductal carcinoma no evidence of recurrent disease Recent bilateral mammogram 08-11-24 benign BIRADS 2 retraction lateral aspect left breast stable Plan: Bilateral mammogram in July 2025 Follow-up in 6 months for examination April 2025 stopped aromasin is not following with medical oncology Cc: Dr. Hastings
== END ==
LOC: WWCWWP 11:21
PROVIDERS: ATTEND Surgery
DX: R92.8 Other abnormal and inconclusive findings on diagnostic imaging of breast (principal); N64.89 Other specified disorders of breast; Z48.817 Encounter for surgical aftercare following surgery on the skin and subcutaneous tissue; Z85.3 Personal history of malignant neoplasm of breast; Z91.041 Radiographic dye allergy status; Z88.8 Allergy status to other drugs, medicaments and biological substances; Z87.891 Personal history of nicotine dependence; Z80.3 Family history of malignant neoplasm of breast